=== PATIENT | male | born 1945 | race Caucasian/White ===

== ENCOUNTER 2016-09-07 11:12 | Inpatient (IN) | payer OTHER ==
--- NOTE | 2016-09-07 11:26 | PDOC ---
History of Present Illness - History of Present Illness Initial Comments: 09/07/16 11:37 The patient is a 70 year old male, with a significant past medical history of COPD, frequent pneumonia (last hospitalized over a year ago), and enlarged prostate, who presents to the emergency department with chills, generalized weakness, and pain upon urination today s/p having a procedure done to his prostate 6 days ago. He states he woke up this morning with chills, reports layering in clothes and laying back down, but reports waking up with his clothes soaked in sweat. He reports pain upon urination without feeling like he completely emptied his bladder. He states he stopped having hematuria on Tuesday. He also reports having a non-productive cough today. He also reports having to take a stool softener yesterday for constipation. 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 He denies chest pain, headache and dizziness. He denies fever, nausea, vomit, diarrhea. He denies frequency, urgency and hematuria. Allergies: NKDA Social history: denies toxic habits. (quit alcohol 40 years ago) PCP - Dr. Whit Morales Urologist - Dr. Harrington <Sol Chu - Last Filed: 09/07/16 12:42> <Loraine Mays - Last Filed: 09/14/16 09:58> - General Chief Complaint: Pain Stated Complaint: SOB (COPD) Time Seen by Provider: 09/07/16 11:25 Past History <Sol Chu - Last Filed: 09/07/16 12:42> - Past Medical History COPD: Yes GI Disorders: Yes (GERD) - Immunization History Immunization Up to Date: Yes - Psycho/Social/Smoking Cessation Hx Anxiety: No Suicidal Ideation: No Smoking History: Former smoker Have you smoked in the past 12 months: Yes If you are a former smoker, when did you quit?: 6 yrs Information on smoking cessation initiated: No Hx Alcohol Use: No Drug/Substance Use Hx: No Substance Use Type: None <Loraine Mays - Last Filed: 09/14/16 09:58> - Past Medical History Allergies/Adverse Reactions: Allergies Allergy/AdvReac Type Severity Reaction Status Date / Time No Known Allergies Allergy Verified 09/07/16 11:17 Home Medications: Ambulatory Orders Albuterol Sulfate Inhaler - [Ventolin HFA Inhaler -] 1 - 2 inh PO PRN 10/20/15 Montelukast Na [Singulair -] 10 mg PO HS 10/20/15 Tamsulosin HCl 0.4 mg PO BID 10/20/15 Tiotropium [place] [Spiriva] 1 inh IH DAILY 10/20/15 Bisacodyl [Dulcolax] 5 mg PO DAILY@1800 PRN 09/07/16 Dextrin [Fiber] 1 scoop PO DAILY@1800 09/07/16 Omeprazole 20 mg PO DAILY 09/07/16 Polyethylene Glycol 3350 [Miralax 119 gm Btl -] 17 gm PO DAILY@1800 09/07/16 Levofloxacin [Levaquin -] 500 mg PO DAILY #4 tablet 09/09/16 Review of Systems - Review of Systems Able to Perform ROS?: Yes Comments:: 09/07/16 11:38 GENERAL/CONSTITUTIONAL: (+) chills and generalized weakness. No fever HEAD, EYES, EARS, NOSE AND THROAT: No change in vision. No ear pain or discharge. No sore throat. CARDIOVASCULAR: No chest pain or shortness of breath. RESPIRATORY: (+) cough, No wheezing, or hemoptysis. GASTROINTESTINAL: No nausea, vomiting, diarrhea or constipation. GENITOURINARY: (+) dysuria, No frequency, or change in urination. MUSCULOSKELETAL: No joint or muscle swelling or pain. No neck or back pain. SKIN: No rash NEUROLOGIC: No headache, vertigo, loss of consciousness, or change in strength/ sensation. ENDOCRINE: No increased thirst. No abnormal weight change. HEMATOLOGIC/LYMPHATIC: No anemia, easy bleeding, or history of blood clots. ALLERGIC/IMMUNOLOGIC: No hives or skin allergy. <Sol Chu - Last Filed: 09/07/16 12:42> *Physical Exam - Vital Signs Last Vital Signs Temp Pulse Resp BP Pulse Ox 97.5 F L 100 H 18 141/87 92 L 09/07/16 11:13 09/07/16 11:13 09/07/16 11:13 09/07/16 11:13 09/07/16 11:13 <Sol Chu - Last Filed: 09/07/16 12:42> - Vital Signs Last Vital Signs Temp Pulse Resp BP Pulse Ox 97.5 F L 100 H 18 141/87 92 L 09/07/16 11:13 09/07/16 11:13 09/07/16 11:13 09/07/16 11:13 09/07/16 11:13 - Physical Exam Comments: GENERAL: Awake, alert, and fully oriented, in no acute distress. +Mild pallor. Appears ill but nontoxic. HEAD: No signs of trauma EYES: PERRLA, EOMI, sclera anicteric, conjunctiva clear ENT: Auricles normal inspection, hearing grossly normal, nares patent, oropharynx clear without exudates. Moist mucosa NECK: Normal ROM, supple, no lymphadenopathy, JVD, or masses LUNGS: Breath sounds equal, clear to auscultation bilaterally. No wheezes, and no crackles HEART: Regular rate and rhythm, normal S1 and S2, no murmurs, rubs or gallops ABDOMEN: Soft, nontender, normoactive bowel sounds. No guarding, no rebound. No masses EXTREMITIES: Normal range of motion, no edema. No clubbing or cyanosis. No cords, erythema, or tenderness NEUROLOGICAL: Cranial nerves II through XII grossly intact. Normal speech, normal gait SKIN: Warm, Dry, normal turgor, no rashes or lesions noted. <Loraine Mays - Last Filed: 09/14/16 09:58> ED Treatment Course - LABORATORY CBC & Chemistry Diagram: 09/07/16 12:07 09/07/16 12:07 - RADIOLOGY Radiograph Interpretation: 09/07/16 12:42 CXR was read by Dr. Burnette at 12:39 Impression: Increased lung markings in the left lower lung zone concerning for segmental left lower lobe pneumonia <Sol Chu - Last Filed: 09/07/16 12:42> - LABORATORY CBC & Chemistry Diagram: 09/09/16 06:30 09/09/16 06:30 <Loraine Mays - Last Filed: 09/14/16 09:58> *DC/Admit/Observation/Transfer - Attestations Scribe Attestion: 09/07/16 11:40 Documentation prepared by Sol Chu, acting as medical technicians for Loraine Mays MD, <Sol Chu - Last Filed: 09/07/16 12:42> - Discharge Dispostion Admit: Yes <Loraine Mays - Last Filed: 09/14/16 09:58> Diagnosis at time of Disposition: UTI (urinary tract infection) Qualifiers: Urinary tract infection type: site unspecified Hematuria presence: without hematuria Qualified Code(s): N39.0 - Urinary tract infection, site not specified Pneumonia Qualifiers: Pneumonia type: due to unspecified organism Laterality: left Lung location: lower lobe of lung Qualified Code(s): J18.1 - Lobar pneumonia, unspecified organism - Discharge Dispostion Disposition: HOME Condition at time of disposition: Stable - Prescriptions - Referrals
[2016-09-07] MEDS ORDERED: ALBUTEROL SO4 2.5/IPRATROPIUM 0.5 INH SOL 3 ML VIAL.NEB. NEB ONE ×2 (12:07→12:13)
[2016-09-07 12:17] LABS: URINE APPEARANCE CLEAR; URINE BILIRUBIN NEGATIVE (NEGATIVE); URINE COLOR LTYELLOW; URINE GLUCOSE (UA) NEGATIVE (NEGATIVE); URINE KETONE NEGATIVE (NEGATIVE); URINE NITRITE NEGATIVE (NEGATIVE); URINE UROBILINOGEN NEGATIVE E.U./dl (0.2-1.0)
[2016-09-07 12:28] LABS: URINE BLOOD 3+ (NEGATIVE); URINE LEUK ESTERASE 2+ (NEGATIVE); URINE PROTEIN 1+ (NEGATIVE)
[2016-09-07 12:37] LABS: URINE MUCUS RARE; URINE RBC 24 /hpf (0-3); URINE WBC 30 /hpf (3-5)
[2016-09-07 12:56] LABS: BASOPHIL 0.4 % (0-2.0); EOSINOPHIL 1.2 % (0-4.5); MCH 30.5 pg (25.7-33.7); MEAN CELL VOLUME 92.6 fl (80-96); MEAN PLT VOLUME 10.4 fl (7.5-11.1); NEUTROPHILS 85.5 % (42.8-82.8); PLATELET COUNT 182 K/MM3 (134-434); RDW 13.5 % (11.9-15.9); WHITE BLOOD COUNT 10.4 K/mm3 (4.0-10.0)
[2016-09-07 12:57] LABS: ALBUMIN 3.7 g/dl (3.4-5.0); ALK PHOS 100 U/L (45-117); ANION GAP 9 (8-16); BILIRUBIN,TOTAL 0.5 mg/dL (0.2-1.0); CALCIUM 8.8 mg/dL (8.5-10.1); CO2 25 mmol/L (21-32); COCKROFT - GAULT 74.84; GLUCOSE,RANDOM 92 mg/dL (74-106); SGOT/AST 18 U/L (15-37); SGPT/ALT 18 U/L (12-78); TOT PROT 6.9 g/dl (6.4-8.2)
[2016-09-07] MEDS ORDERED: LEVOFLOXACIN 750 MG IVPB 150 ML IVPB ONE ×2 (13:36→13:41)
[2016-09-07] MEDS ORDERED: SODIUM CHLORIDE 1,000 ML IV SCH ×2 (14:30→15:30)
--- NOTE | 2016-09-07 15:02 | HP ---
CHIEF COMPLAINT: chills and generalized weakness PCP: Kathi Morales Urologist: Len HISTORY OF PRESENT ILLNESS: This is a 70 yo man with h/o BPH s/p Greenlight procedure 09/01/16, COPD, frequent PNA, GERD who presents for care upon waking up this morning with chills, sweating and generalized weakness. He also reports burning at the urinary meatus at the conclusion of voiding. He denies urinary frequency and urgency. ER course was notable for: (1) left lower lobe PNA (2) Neutrophilia (3) Pyuria Recent Travel: Denies PAST MEDICAL HISTORY: COPD, frequent PNA, GERD, BPH s/p Greenlight procedure PAST SURGICAL HISTORY: Denies Social History: Smoking: Former smoker quit in 2008- 135 pack years Alcohol: Quit in 1976 Drugs: denies Family History: noncontributory Allergies No Known Allergies Allergy (Verified 09/07/16 11:17) HOME MEDICATIONS: Home Medications Medication Instructions Recorded Albuterol Sulfate Inhaler - 1 - 2 inh PO PRN 10/20/15 [Ventolin Hfa Inhaler -] Budesonide/Formeterol Fumarate 1 inh PO BID 10/20/15 [SYMBICORT 160/4.5mcg -] Montelukast Na [Singulair -] 10 mg PO HS 10/20/15 Tamsulosin HCl 0.4 mg PO DAILY 10/20/15 Tiotropium [place] [Spiriva] 1 inh PO DAILY 10/20/15 REVIEW OF SYSTEMS CONSTITUTIONAL: Absent: fever, malaise, loss of appetite, weight change Present: chills, diaphoresis, generalized weakness HEENT: Absent: rhinorrhea, nasal congestion, throat pain, throat swelling, difficulty swallowing, mouth swelling, ear pain, eye pain, visual changes CARDIOVASCULAR: Absent: chest pain, syncope, palpitations, irregular heart rate, lightheadedness , peripheral edema RESPIRATORY: Absent: cough, dyspnea with exertion, orthopnea, wheezing, stridor, hemoptysis Present: shortness of breath but denies change from baseline GASTROINTESTINAL: Absent: abdominal pain, abdominal distension, nausea, vomiting, diarrhea, constipation, melena, hematochezia GENITOURINARY: Absent: frequency, urgency, hesitancy, hematuria, genital pain Present: dysuria, right CVAT MUSCULOSKELETAL: Absent: myalgia, arthralgia, joint swelling, back pain, neck pain SKIN: Absent: rash, itching, pallor HEMATOLOGIC/IMMUNOLOGIC: Absent: easy bleeding, easy bruising, lymphadenopathy, frequent infections ENDOCRINE: Absent: unexplained weight gain, unexplained weight loss, heat intolerance, cold intolerance NEUROLOGIC: Absent: headache, focal weakness or paresthesias, dizziness, unsteady gait, seizure, mental status changes, bladder or bowel incontinence PSYCHIATRIC: Absent: anxiety, depression, suicidal or homicidal ideation, hallucinations. PHYSICAL EXAMINATION Vital Signs - 24 hr 09/07/16 11:13 Temperature 97.5 F L Pulse Rate 100 H Respiratory 18 Rate Blood Pressure 141/87 O2 Sat by Pulse 92 L Oximetry (%) GENERAL: Awake, alert, and fully oriented, in no acute distress. HEAD: Normal with no signs of trauma. EYES: Pupils equal, round and reactive to light, extraocular movements intact, sclera anicteric, conjunctiva clear. No lid lag. EARS, NOSE, THROAT: Ears normal, nares patent, oropharynx clear without exudates. Moist mucous membranes. NECK: Normal range of motion, supple without lymphadenopathy, JVD, or masses. LUNGS: Breath sounds equal, clear to auscultation bilaterally. No wheezes, and no crackles. No accessory muscle use. HEART: Regular rate and rhythm, normal S1 and S2 without murmur, rub or gallop. ABDOMEN: Soft, nontender, not distended, normoactive bowel sounds, no guarding, no rebound, no masses. No hepatomegaly or splenomegaly. MUSCULOSKELETAL: Normal range of motion at all joints. No bony deformities or tenderness. Right CVA tenderness. UPPER EXTREMITIES: 2+ pulses, warm, well-perfused. No cyanosis. No clubbing. No peripheral edema. LOWER EXTREMITIES: 2+ pulses, warm, well-perfused. No calf tenderness. No peripheral edema. NEUROLOGICAL: Cranial nerves II-XII intact. Normal speech. Normal gait. PSYCHIATRIC: Cooperative. Good eye contact. Appropriate mood and affect. SKIN: Warm, dry, normal turgor, no rashes or lesions noted, normal capillary refill. Laboratory Results - last 24 hr 09/07/16 09/07/16 09/07/16 11:55 12:07 12:07 WBC 10.4 H RBC 5.10 Hgb 15.6 Hct 47.2 MCV 92.6 MCHC 33.0 RDW 13.5 Plt Count 182 MPV 10.4 Neutrophils % 85.5 H Lymphocytes % 6.6 L Monocytes % 6.3 Eosinophils % 1.2 Basophils % 0.4 Sodium 140 Potassium 4.4 Chloride 106 Carbon Dioxide 25 Anion Gap 9 BUN 11 Creatinine 1.0 Creat Clearance w eGFR > 60 Random Glucose 92 Calcium 8.8 Total Bilirubin 0.5 AST 18 ALT 18 Alkaline Phosphatase 100 Total Protein 6.9 Albumin 3.7 Urine Color Ltyellow Urine Appearance Clear Urine pH 5.0 Ur Specific [place] 1.014 Urine Protein 1+ H Urine Glucose (UA) Negative Urine Ketones Negative Urine Blood 3+ H Urine Nitrite Negative Urine Bilirubin Negative Urine Urobilinogen Negative Ur Leukocyte Esterase 2+ H Urine RBC 24 Urine WBC 30 Urine Mucus Rare ASSESSMENT/PLAN: This is a 70 yo man with h/o BPH s/p Greenlight procedure 09/01/16, COPD, frequent PNA, GERD who presents for care upon waking up this morning with chills , sweating and generalized weakness. Pt found to have + LLL PNA, UTI s/p TURP 6 days ago 1. UTI: -Levaquin 750 mg x 7 days -strict I and O -monitor for retention and dysuria -IVF - consult 2. PNA LLL -on Levaquin for coverage -Chest PT/Incentive spirometer -monitor oxygen sat, supplemental as needed. 3. DVT/GI ppx 4. Admission med surg Problem List - Problem (1) Pneumonia Code(s): J18.9 - PNEUMONIA, UNSPECIFIED ORGANISM Qualifiers: Pneumonia type: due to unspecified organism Laterality: left Lung location: lower lobe of lung Qualified Code(s): J18.1 - Lobar pneumonia, unspecified organism (2) UTI (urinary tract infection) Code(s): N39.0 - URINARY TRACT INFECTION, SITE NOT SPECIFIED Qualifiers: Urinary tract infection type: site unspecified Hematuria presence: without hematuria Qualified Code(s): N39.0 - Urinary tract infection, site not specified Visit type - Emergency Visit Emergency Visit: Yes ED Registration Date: 09/07/16 Care time: The patient presented to the Emergency Department on the above date and was hospitalized for further evaluation of their emergent condition. - New Patient This patient is new to me today: Yes Date on this admission: 09/07/16 - Critical Care Critical Care patient: No
[2016-09-07] MEDS ORDERED: ALBUTEROL SO4 6.7 GM HFA INHALER IH SCH (15:15)
[2016-09-07] MEDS ORDERED: ACETAMINOPHEN 325 MG TABLET (FP) PO PRN (15:16)
[2016-09-07 17:29] VITALS: BMI 20.9
--- NOTE | 2016-09-07 18:42 | CON.GU ---
Consult Consult Specialty:: Urology Referred by:: Shelton Edwards Reason for Consultation:: UTI - History of Present Illness Chief Complaint: chills and weakness History of Present Illness: 70 yo m w hx BPH s/p GLL ablation of prostate 09/01 pres to ED c/o chills, sweats , weakness and dysuria, found to have UTI and PNA and cons req. - History Source History Provided By: Patient, Medical Record Limitations to Obtaining History: No Limitations - Past Medical History Pulmonary: Yes: COPD Renal/: Yes: BPH, UTI - Alcohol/Substance Use Hx Alcohol Use: No - Smoking History Smoking history: Former smoker Have you smoked in the past 12 months: No If you are a former smoker, when did you quit?: 2008 Home Medications - Allergies Allergies/Adverse Reactions: Allergies Allergy/AdvReac Type Severity Reaction Status Date / Time No Known Allergies Allergy Verified 09/07/16 11:17 - Home Medications Home Medications: Ambulatory Orders Albuterol Sulfate Inhaler - [Ventolin Hfa Inhaler -] 1 - 2 inh PO PRN 10/20/15 Montelukast Na [Singulair -] 10 mg PO HS 10/20/15 Tamsulosin HCl 0.4 mg PO BID 10/20/15 Tiotropium [place] [Spiriva] 1 inh IH DAILY 10/20/15 Bisacodyl [Dulcolax] 5 mg PO DAILY@1800 PRN 09/07/16 Dextrin [Fiber] 1 scoop PO DAILY@1800 09/07/16 Omeprazole 20 mg PO DAILY 09/07/16 Polyethylene Glycol 3350 [Miralax (For Daily Use) -] 17 gm PO DAILY@1800 Review of Systems - Review of Systems Genitourinary: reports: Burning, Dysuria Physical Exam- Vital Signs: Vital Signs Temperature 97.5 F L 09/07/16 17:21 Pulse Rate 85 09/07/16 17:21 Respiratory Rate 20 09/07/16 17:21 Blood Pressure 165/86 09/07/16 17:21 O2 Sat by Pulse Oximetry (%) 98 09/07/16 15:44 Gastrointestinal: Yes: Normal Bowel Sounds, Soft Renal/: Yes: WNL, CVA Tenderness - Right Testicles: Yes: WNL, Descended Assessment/Plan Imp: UTI, BPH s/p GLL ablation of prostate, PNA Rec: urine c+s, iv abxs, f/u w PMD after disch
[2016-09-07] MEDS: MONTELUKAST NA 10 MG TABLET PO SCH (22:56)
[2016-09-07] MEDS: BUDESONIDE/FORMETEROL FUMARATE 160/4.5 mcg INHALER IH SCH (22:56)
[2016-09-07] MEDS: ACLIDINIUM BROMIDE 400 MCG/INH AERO.POWD IH SCH (23:02)
[2016-09-08 07:52] LABS: MCH 30.8 pg (25.7-33.7); MCHC 33.4 g/dl (32.0-35.9); MEAN CELL VOLUME 92.3 fl (80-96); MEAN PLT VOLUME 10.5 fl (7.5-11.1); PLATELET COUNT 187 K/MM3 (134-434); RDW 13.2 % (11.9-15.9); WHITE BLOOD COUNT 7.2 K/mm3 (4.0-10.0)
--- NOTE | 2016-09-08 08:14 | EKG ---
Test Reason : Blood Pressure : / mmHG Vent. Rate : 089 BPM Atrial Rate : 089 BPM P-R Int : 212 ms QRS Dur : 078 ms QT Int : 344 ms P-R-T Axes : 106 029 032 degrees QTc Int : 418 ms SINUS RHYTHM WITH 1ST DEGREE A-V BLOCK WITH PREMATURE SUPRAVENTRICULAR COMPLEXES SEPTAL INFARCT , AGE UNDETERMINED ABNORMAL ECG NO PREVIOUS ECGS AVAILABLE Confirmed by LISE MATHEW MD ([id number]) on 09/08/2016 8:13:55 AM Referred By: Confirmed By:LISE MATHEW MD
[2016-09-08 08:57] LABS: ALBUMIN 3.2 g/dl (3.4-5.0); ALK PHOS 91 U/L (45-117); ANION GAP 13 (8-16); BILIRUBIN,TOTAL 0.8 mg/dL (0.2-1.0); CALCIUM 8.9 mg/dL (8.5-10.1); CO2 24 mmol/L (21-32); COCKROFT - GAULT 80.13; CREATININE 0.9 mg/dL (0.7-1.3); SGOT/AST 15 U/L (15-37); SGPT/ALT 17 U/L (12-78); TOT PROT 6.1 g/dl (6.4-8.2)
[2016-09-08 09:12] LABS: GLUCOSE,RANDOM 78 mg/dL (74-106)
[2016-09-08] MEDS ORDERED: PT OWN MED DRAWER 7, Y5N ONE (10:18)
[2016-09-08] MEDS: TAMSULOSIN HCL 0.4 MG CAP.ER.24H (FP) PO SCH (10:19)
[2016-09-08] MEDS: ACLIDINIUM BROMIDE 400 MCG/INH AERO.POWD IH SCH ×2 (10:20→21:23)
[2016-09-08] MEDS: BUDESONIDE/FORMETEROL FUMARATE 160/4.5 mcg INHALER IH SCH ×2 (10:20→21:23)
[2016-09-08] MEDS: LEVOFLOXACIN 250 MG TABLET (FP) PO SCH (10:20)
--- NOTE | 2016-09-08 17:56 | PN ---
Teaching Attending Note Name of Resident: Stephani Woodward ATTENDING PHYSICIAN STATEMENT I saw and evaluated the patient. I reviewed the resident's note and discussed the case with the resident. I agree with the resident's findings and plan as documented. SUBJECTIVE: No complaints. OBJECTIVE: Vital Signs Period Temp Pulse Resp BP Sys/Ricardo Pulse Ox Last 24 Hr 97.1 F-98.3 F 70-87 20-20 111-134/69-70 91-95 HEART: S1S2, RRR LUNGS: Clear ABDOMEN: Soft, non-tender, non-distended, normal BS EXTREMITIES: No edema ASSESSMENT AND PLAN: This is a 70-year-old man with a history of BPH, Greenlight laser of prostate , COPD, GERD who presented to the ER with chills, sweats and generalized weakness. 1. Pneumonia, UTI - Improving - Continue Levaquin 2. BPH, s/p greenlight laser ablation of prostate 09/01 - Continue Flomax 3. COPD - Stable - Continue Symbixort, Jose Alfredorseveriano, Sukumarulair
--- NOTE | 2016-09-08 18:42 | PN ---
Physical Exam: SUBJECTIVE: Patient seen and examined, no new complains, afebrile. Denies cough , diaphoresis, chest pain, sob, dysuria, hematuria. OBJECTIVE: Vital Signs Period Temp Pulse Resp BP Sys/Ricardo Pulse Ox Last 24 Hr 97.1 F-98.3 F 70-87 20-20 111-134/69-70 91-95 GENERAL: The patient is awake, alert, and fully oriented, in no acute distress. HEAD: Normal with no signs of trauma. LUNGS: Breath sounds equal, bilateral bibasilar crackles HEART: Regular rate and rhythm, very distant heart sounds;hard to auscultate ABDOMEN: Soft, nontender, nondistended, normoactive bowel sounds, no guarding, no rebound, no hepatosplenomegaly, no masses. EXTREMITIES: 2+ pulses, warm, well-perfused, no edema. NEUROLOGICAL: Cranial nerves II through XII grossly intact. Normal speech, gait not observed. PSYCH: Normal mood, normal affect. SKIN: Warm, dry, normal turgor, no rashes or lesions noted Laboratory Results - last 24 hr 09/08/16 09/08/16 09/08/16 06:15 06:15 06:15 WBC 7.2 D RBC 4.92 Hgb 15.1 Hct 45.4 MCV 92.3 MCHC 33.4 RDW 13.2 Plt Count 187 MPV 10.5 PTT (Actin FS) 33.7 Sodium 141 Potassium 4.1 Chloride 104 Carbon Dioxide 24 Anion Gap 13 BUN 13 Creatinine 0.9 Creat Clearance w eGFR > 60 Random Glucose 78 Calcium 8.9 Total Bilirubin 0.8 D AST 15 ALT 17 Alkaline Phosphatase 91 Total Protein 6.1 L Albumin 3.2 L Active Medications Generic Name Dose Route Start Last Admin Trade Name Freq PRN Reason Stop Dose Admin Acetaminophen 650 mg 09/07/16 15:16 Tylenol - PO Q4H PRN FEVER OR PAIN Aclidinium [place] 1 puff 09/07/16 22:00 09/08/16 10:20 Tudorza - IH 1 puff BID YARIEL Administration Albuterol Sulfate 1 - 2 puff 09/07/16 15:15 Ventolin Hfa Inhaler - IH PRN YARIEL Budesonide/Formoterol Fumarate 1 puff 09/07/16 22:00 09/08/16 10:20 Symbicort 160/4.5mcg - IH 1 puff BID YARIEL Administration Sodium Chloride 1,000 mls @ 75 mls/hr 09/07/16 15:30 09/07/16 20:23 Normal Saline - IV 75 mls/hr ASDIR YARIEL Administration Levofloxacin 750 mg 09/08/16 10:00 09/08/16 10:20 Levaquin - PO 09/14/16 11:00 750 mg DAILY YARIEL Administration Montelukast Sodium 10 mg 09/07/16 22:00 09/07/16 22:56 Singulair - PO 10 mg HS YARIEL Administration Tamsulosin HCl 0.4 mg 09/08/16 10:00 09/08/16 10:19 Flomax - PO 0.4 mg DAILY YARIEL Administration ASSESSMENT/PLAN: 70 yea old male with PMHx BPH s/p TURP procedure on 09/01/16; recurrent PNA; COPD , GERD; presents wtih night sweats and fever, admitted for left lower lobe pneumonia and UTI. # left lower lobe pneumonia: -IV levaquin 750mg qd -await blood cultures -keep o2 sat >90% #UTI -on antibiotics -urine culture pending -seen by uroloogy; no intervention at this time #COPD: singulair 10mg po hs -symbicort 1puff qd -turdoza 1 puff bid #BPH: flomax FEN: Fluids:po Electrolytes: DIet: regular Visit type - Emergency Visit Emergency Visit: Yes ED Registration Date: 09/07/16 Care time: The patient presented to the Emergency Department on the above date and was hospitalized for further evaluation of their emergent condition. - New Patient This patient is new to me today: Yes Date on this admission: 09/08/16 - Critical Care Critical Care patient: No
[2016-09-08] MEDS: MONTELUKAST NA 10 MG TABLET PO SCH (21:23)
[2016-09-09 07:56] LABS: BASOPHIL 0.7 % (0-2.0); EOSINOPHIL 3.2 % (0-4.5); MCHC 33.3 g/dl (32.0-35.9); MEAN CELL VOLUME 93.2 fl (80-96); NEUTROPHILS 78.6 % (42.8-82.8); PLATELET COUNT 182 K/MM3 (134-434); RDW 13.1 % (11.9-15.9)
[2016-09-09 08:31] LABS: CALCIUM 9.1 mg/dL (8.5-10.1); COCKROFT - GAULT 60.1; CREATININE 1.2 mg/dL (0.7-1.3)
[2016-09-09] MEDS ORDERED: PT OWN MED DRAWER 7, Y5N ONE (09:23)
[2016-09-09] MEDS: BUDESONIDE/FORMETEROL FUMARATE 160/4.5 mcg INHALER IH SCH (09:40)
[2016-09-09] MEDS: LEVOFLOXACIN 250 MG TABLET (FP) PO SCH (09:40)
[2016-09-09] MEDS: TAMSULOSIN HCL 0.4 MG CAP.ER.24H (FP) PO SCH (09:40)
[2016-09-09] MEDS: ACLIDINIUM BROMIDE 400 MCG/INH AERO.POWD IH SCH (09:41)
[2016-09-09 10:13] VITALS: BP 134/76; PULSE 86; TEMP 97.7
[2016-09-09] MEDS ORDERED: POLYETHYLENE GLYCOL 3350 119 GM BTL PO SCH (11:15)
--- NOTE | 2016-09-09 16:28 | DS ---
Physical Exam: SUBJECTIVE: Patient seen and examined, feeling better, denies chest pain, sob, dysuria, hematuria. OBJECTIVE: Vital Signs Period Temp Pulse Resp BP Sys/Ricardo Pulse Ox Last 24 Hr 97.1 F-97.7 F 70-86 20-20 118-134/66-76 93 PHYSICAL EXAM GENERAL: The patient is awake, alert, and fully oriented, in no acute distress. HEAD: Normal with no signs of trauma. EYES: PERRL, extraocular movements intact, sclera anicteric, conjunctiva clear. ENT: Ears normal, nares patent, oropharynx clear without exudates, moist mucous membranes. NECK: Trachea midline, full range of motion, supple. LUNGS: decreased Breath sounds at bases , clear to auscultation bilaterally, no wheezes, no crackles, no accessory muscle use. HEART: Regular rate and rhythm, S1, S2 without murmur, rub or gallop. ABDOMEN: Soft, nontender, nondistended, normoactive bowel sounds, no guarding, no rebound, no hepatosplenomegaly, no masses. EXTREMITIES: 2+ pulses, warm, well-perfused, no edema. NEUROLOGICAL: Cranial nerves II through XII grossly intact. Normal speech, gait not observed. PSYCH: Normal mood, normal affect. SKIN: Warm, dry, normal turgor, no rashes or lesions noted. LABS Laboratory Results - last 24 hr 09/09/16 09/09/16 06:30 06:30 WBC 9.0 RBC 4.97 Hgb 15.4 Hct 46.3 MCV 93.2 MCHC 33.3 RDW 13.1 Plt Count 182 MPV 10.0 Neutrophils % 78.6 Lymphocytes % 7.9 L Monocytes % 9.6 Eosinophils % 3.2 D Basophils % 0.7 Sodium 141 Potassium 4.4 Chloride 105 Carbon Dioxide 24 Anion Gap 12 BUN 19 H D Creatinine 1.2 D Random Glucose 93 Calcium 9.1 HOSPITAL COURSE: Date of Admission:09/07/16 Date of Discharge: 09/09/16 70 yea old male with PMHx BPH s/p TURP procedure on 09/01/16; history of recurrent pneumonia, COPD, GERD who presented with night sweats and fever, dysuria admitted for left lower lobe pneumonia. There was question of urinary tract infection, this was ruled out due to recent procedure, patient was likey to have had white and red blood cell sin urine. He only had episodes of dysuria after catheter was removed s/p greenlight ablation. This was quickly resolved. # Left lower lobe pneumonia: -Levaquin 750mg 3 days in hospital ; sent home to complete seven days -blood cultures negative -keep o2 sat >90% #Urine analysis with RBCs, WBCs secondary to recent urology procedure; -on antibiotics -urine culture pending -seen by uroloogy; no intervention at this time; will follow up in office #COPD: -singulair 10mg po hs -symbicort 1puff qd -turdoza 1 puff bid #BPH: flomax Minutes to complete discharge: 35 Discharge Summary Reason For Visit: UTI,PNA Condition: Stable - Instructions Diet, Activity, Other Instructions: Mr. Deng, you have been treated for a urinary tract infection and a pneumonia. Please continue to take your antibiotic as directed. Please follow up with your urologist and primary care physician with on one week. If you experience any worsening of symptoms including chest pain , shortness of breath, increased burning with urination, please return to the emergency room. Referrals: Yolis Sprague MD [Primary Care Provider] - Clay Dumont [Non Staff, Medical] - Disposition: HOME - Home Medications Comprehensive Discharge Medication List: Ambulatory Orders Albuterol Sulfate Inhaler - [Ventolin HFA Inhaler -] 1 - 2 inh PO PRN 10/20/15 Montelukast Na [Singulair -] 10 mg PO HS 10/20/15 Tamsulosin HCl 0.4 mg PO BID 10/20/15 Tiotropium [place] [Spiriva] 1 inh IH DAILY 10/20/15 Bisacodyl [Dulcolax] 5 mg PO DAILY@1800 PRN 09/07/16 Dextrin [Fiber] 1 scoop PO DAILY@1800 09/07/16 Omeprazole 20 mg PO DAILY 09/07/16 Polyethylene Glycol 3350 [Miralax 119 gm Btl -] 17 gm PO DAILY@1800 09/07/16 Levofloxacin [Levaquin -] 500 mg PO DAILY #4 tablet 09/09/16 This patient is new to me today: No Emergency Visit: Yes ED Registration Date: 09/07/16 Care time: The patient presented to the Emergency Department on the above date and was hospitalized for further evaluation of their emergent condition. Critical Care patient: No - Discharge Referral Referred to [facility] Med P.C.: No
--- NOTE | 2016-09-09 17:25 | PN ---
Teaching Attending Note Name of Resident: Stephani Woodward ATTENDING PHYSICIAN STATEMENT I saw and evaluated the patient. I reviewed the resident's note and discussed the case with the resident. I agree with the resident's findings and plan as documented. SUBJECTIVE: No complaints. OBJECTIVE: Vital Signs Period Temp Pulse Resp BP Sys/Ricardo Pulse Ox Last 24 Hr 97.6 F-97.7 F 83-86 20-20 118-134/66-76 93 HEART: S1S2, RRR LUNGS: Clear ABDOMEN: Soft, non-tender, non-distended, normal BS EXTREMITIES: No edema ASSESSMENT AND PLAN: This is a 70-year-old man with a history of BPH, Greenlight laser of prostate , COPD, GERD who presented to the ER with chills, sweats and generalized weakness. 1. Pneumonia, possible UTI - Blood cultures negaive after 48 hrs - Urine culture < 10,000 colonies - Continue Levaquin 2. BPH, s/p greenlight laser ablation of prostate 09/01 - Continue Flomax 3. COPD - Stable - Continue Symbixort, Tudorza, Singulair 4. Disposition - Discharge home on PO Levaquin
== END 2016-09-09 14:04 | disposition home or self-care (01) | DRG 194 ==
LOC: JER 11:12 → JERBED 14:26 → J8W 16:15
PROVIDERS: ADMIT Internal Medicine; ATTEND Internal Medicine
DX: J18.9 Pneumonia, unspecified organism (principal); N39.0 Urinary tract infection, site not specified; J44.9 Chronic obstructive pulmonary disease, unspecified; N40.0 Benign prostatic hyperplasia without lower urinary tract symptoms; K21.9 Gastro-esophageal reflux disease without esophagitis
CPT/HCPCS: 36415; 71010-TC; 80048; 80053; 81003; 81015; 85025; 85027; 85730; 87040; 87086; 87899; 93005; 93010; 94010; 99283-25

== ENCOUNTER 2017-01-31 10:11 | Emergency (ER) | payer OTHER ==
[2017-01-31 10:27] VITALS: BMI 21.7
--- NOTE | 2017-01-31 10:47 | PDOC ---
History of Present Illness - General Chief Complaint: Shortness of Breath Stated Complaint: FEVER, CHILLS Time Seen by Provider: 01/31/17 10:47 - History of Present Illness Initial Comments: This is a 70 yo man with h/o BPH s/p Greenlight procedure 09/01/16, COPD, frequent PNA, and GERD presenting with SOB, productive cough, and warmth for the past few days. Patient states that he had an upper respiratory infection that felt like a cold which resolved mid last week and he was asymptomatic for a few days then began to have fevers, productive cough, SOB, and general lethargy on Tuesday. He states that these symptoms feel like his previous episodes of PNA for which he was admitted back in September for a one day IV antibiotic stay. He has done outpatient oral antibiotics in the past with good success. He was not able to measure his temperature at home. He complains of some occasional lower right posterior rib pain after some coughing without radiation or other concerning signs. He is on oxygen at night 2L NC for the past month. Denies nausea, vomiting, diarrhea, dysuria, or frequency but does admit to decreased appetite over the last few days. 01/31/17 10:48 01/31/17 11:49 Past History - Past Medical History Allergies/Adverse Reactions: Allergies Allergy/AdvReac Type Severity Reaction Status Date / Time No Known Allergies Allergy Verified 01/31/17 10:23 Home Medications: Ambulatory Orders Albuterol Sulfate Inhaler - [Ventolin HFA Inhaler -] 1 - 2 inh PO PRN 10/20/15 Montelukast Na [Singulair -] 10 mg PO HS 10/20/15 Tamsulosin HCl 0.4 mg PO BID 10/20/15 Tiotropium [place] [Spiriva] 1 inh IH DAILY 10/20/15 Bisacodyl [Dulcolax] 5 mg PO DAILY@1800 PRN 09/07/16 Dextrin [Fiber] 1 scoop PO DAILY@1800 09/07/16 Omeprazole 20 mg PO DAILY 09/07/16 Polyethylene Glycol 3350 [Miralax 119 gm Btl -] 17 gm PO DAILY@1800 09/07/16 Aspirin [ASA -] 325 mg PO DAILY 01/31/17 Budesonide/Formeterol Fumarate [SYMBICORT 160/4.5mcg -] 1 inh PO DAILY 01/31/17 Levofloxacin [Levaquin -] 500 mg PO DAILY #14 tablet 01/31/17 Pantoprazole Sodium 40 mg PO DAILY 01/31/17 Simvastatin 10 mg PO DAILY 01/31/17 COPD: Yes GI Disorders: Yes (GERD) Disorders: (ENLARGED PROSTATE) Thyroid Disease: (HYPOTHYROID A CHILD) Other medical history: o2 dependant at night - Surgical History Appendectomy: Yes Orthopedic Surgery: (JAW SURGERY) - Immunization History Immunization Up to Date: Yes - Suicide/Smoking/Psychosocial Hx Smoking History: Former smoker Have you smoked in the past 12 months: Yes If you are a former smoker, when did you quit?: 6 yrs Information on smoking cessation initiated: No Hx Alcohol Use: No Drug/Substance Use Hx: No Substance Use Type: None Hx Substance Use Treatment: No Review of Systems - Review of Systems Constitutional: Yes: Chills, Fever, Malaise, Weakness HEENTM: No: Blurred Vision, Recent change in vision Respiratory: Yes: Cough, Shortness of Breath, Productive cough. No: Wheezing Cardiac (ROS): No: Chest Pain, Palpitations, Syncope, Chest Tightness ABD/GI: Yes: Poor Appetite. No: Nausea, Vomiting : No: Dysuria, Discharge, Frequency Neurological: No: Headache, Numbness *Physical Exam - Vital Signs Last Vital Signs Temp Pulse Resp BP Pulse Ox 97.4 F L 59 L 18 180/86 94 L 01/31/17 10:23 01/31/17 10:23 01/31/17 10:23 01/31/17 10:23 01/31/17 10:23 - Physical Exam General Appearance: Yes: Nourished, Appropriately Dressed. No: Apparent Distress HEENT: positive: EOMI, GISEL, Normal Voice, Pharyngeal Erythema, Other (Dry mucous membranes) Neck: positive: Trachea midline, Normal Thyroid, Supple, Other (No lymphadenopathy). negative: Tender, Rigid Respiratory/Chest: positive: Lungs Clear, Normal Breath Sounds. negative: Chest Tender, Respiratory Distress, Accessory Muscle Use Cardiovascular: positive: Regular Rhythm, Regular Rate Gastrointestinal/Abdominal: positive: Normal Bowel Sounds, Flat, Soft. negative : Tender Musculoskeletal: positive: Normal Inspection Extremity: positive: Normal Inspection, Normal Range of Motion. negative: Tender Integumentary: positive: Normal Color, Dry, Warm Neurologic: positive: Fully Oriented, Alert, Normal Mood/Affect, Motor Strength 09/17 ED Treatment Course - LABORATORY CBC & Chemistry Diagram: 01/31/17 11:42 01/31/17 11:42 Medical Decision Making - Medical Decision Making 71 year old male with PMH of recurrent PNA presenting with respiratory issues, fevers, and cough. This is most concerning for post-viral pneumonia or bacterial super-infection on top of the previous viral illness. He does not perc out but he does not have history of coagulopathy.`He also scores a zero on wells criteria. Will get CBC, CMP, UA, and CXR then give 500 NS. 01/31/17 11:45 CXR appears clear and WBC WNL but with slight left shift. PSI score is 59 ( assuming that blood PH is WNL) so patient is appropriate for outpatient treatment. Will re-evaluate and send home with levaquin course (500 qd x 14 days ) with return precautions. 01/31/17 12:20 Patient feeling better so will DC home. 01/31/17 14:28 *DC/Admit/Observation/Transfer Diagnosis at time of Disposition: Pneumonia - Discharge Dispostion Disposition: HOME Condition at time of disposition: Improved Admit: No - Prescriptions Prescriptions: Levofloxacin [Levaquin -] 500 mg PO DAILY #14 tablet - Patient Instructions Printed Discharge Instructions: DI for Pneumonia -- Adult
--- NOTE | 2017-01-31 10:55 | PDOC ---
Attending Attestation - Resident Resident Name: Cecy Bunch - ED Attending Attestation I have performed the following: I have examined & evaluated the patient, The case was reviewed & discussed with the resident, I agree w/resident's findings & plan, Exceptions are as noted - HPI HPI: 01/31/17 10:50 Dyspnea/SHortness of Breath - Physicial Exam PE: 01/31/17 10:51 RR 18 and Pulse Ox 94% No Distress - Medical Decision Making 01/31/17 10:[address] Cecy Bunch Assessment and Plan
[2017-01-31] MEDS ORDERED: SODIUM CHLORIDE 500 ML IV STA (11:51)
[2017-01-31 12:04] LABS: BASOPHIL 0.7 % (0-2.0); EOSINOPHIL 1.7 % (0-4.5); MCH 30.8 pg (25.7-33.7); MCHC 33.4 g/dl (32.0-35.9); MEAN CELL VOLUME 92.4 fl (80-96); MEAN PLT VOLUME 9.5 fl (7.5-11.1); NEUTROPHILS 87.7 % (42.8-82.8); PLATELET COUNT 216 K/MM3 (134-434); RDW 13.2 % (11.9-15.9); WHITE BLOOD COUNT 9.2 K/mm3 (4.0-10.0)
[2017-01-31 12:24] LABS: ALBUMIN 3.5 g/dl (3.4-5.0); ALK PHOS 89 U/L (45-117); ANION GAP 4 (8-16); BILIRUBIN,TOTAL 0.3 mg/dL (0.2-1.0); CALCIUM 8.7 mg/dL (8.5-10.1); CO2 29 mmol/L (21-32); GLUCOSE,RANDOM 94 mg/dL (74-106); MAGNESIUM 2.2 mg/dL (1.8-2.4); PHOSPHOROUS 1.9 mg/dL (2.5-4.9); SGOT/AST 21 U/L (15-37); SGPT/ALT 25 U/L (12-78); TOT PROT 6.5 g/dl (6.4-8.2)
[2017-01-31] MEDS ORDERED: LEVOFLOXACIN 500 MG IVPB 100 ML IVPB ONE ×2 (13:22→13:49)
[2017-01-31 14:21] LABS: URINE APPEARANCE CLEAR; URINE BILIRUBIN NEGATIVE (NEGATIVE); URINE BLOOD NEGATIVE (NEGATIVE); URINE COLOR STRAW; URINE GLUCOSE (UA) NEGATIVE (NEGATIVE); URINE KETONE NEGATIVE (NEGATIVE); URINE LEUK ESTERASE NEGATIVE (NEGATIVE); URINE NITRITE NEGATIVE (NEGATIVE); URINE PROTEIN NEGATIVE (NEGATIVE); URINE UROBILINOGEN NEGATIVE mg/dL (0.2-1.0)
[2017-01-31 14:52] VITALS: BP 114/68; PULSE 64; TEMP 98.2
--- NOTE | 2017-01-31 16:35 | EKG ---
Test Reason : Blood Pressure : / mmHG Vent. Rate : 057 BPM Atrial Rate : 057 BPM P-R Int : 172 ms QRS Dur : 086 ms QT Int : 394 ms P-R-T Axes : 059 028 045 degrees QTc Int : 383 ms SINUS BRADYCARDIA WITH OCCASIONAL PREMATURE VENTRICULAR COMPLEXES OTHERWISE NORMAL ECG WHEN COMPARED WITH ECG OF 07-SEP-2016 14:55, PREMATURE VENTRICULAR COMPLEXES ARE NOW PRESENT [place] INTERVAL HAS DECREASED VENT. RATE HAS DECREASED BY 32 BPM Confirmed by LISE MATHEW MD ([id number]) on 01/31/2017 4:34:55 PM Referred By: Confirmed By:LISE MATHEW MD
== END 2017-01-31 14:40 | disposition home or self-care (01) ==
LOC: JER 10:11
PROC: 3E0337Z Introduction of Electrolytic and Water Balance Substance into Peripheral Vein, Percutaneous Approach (ICD-10-PCS; principal; 2017-01-31)
PROC: 3E03329 Introduction of Other Anti-infective into Peripheral Vein, Percutaneous Approach (ICD-10-PCS; 2017-01-31)
DX: J18.9 Pneumonia, unspecified organism (principal); K21.9 Gastro-esophageal reflux disease without esophagitis; N40.0 Benign prostatic hyperplasia without lower urinary tract symptoms
CPT/HCPCS: 36415; 71020-TC; 80053; 81003; 83735; 84100; 85025; 87086; 93005; 93010; 96361; 96365; 99284-25

== ENCOUNTER 2017-02-22 11:09 | Emergency (ER) | payer OTHER ==
[2017-02-22 11:19] VITALS: BP 146/89; PULSE 62; TEMP 97.7; BMI 21.7
[2017-02-22] MEDS ORDERED: KETOROLAC TROMETHAMINE 60 MG/2 ML VIAL IM ONE (12:18)
[2017-02-22] MEDS ORDERED: KETOROLAC TROMETHAMINE 60 MG/2 ML VIAL ONE (12:21)
--- NOTE | 2017-02-22 12:23 | PDOC ---
History of Present Illness - General Chief Complaint: Pain Stated Complaint: Left Shoulder Pain Time Seen by Provider: 02/22/17 11:48 History Source: Patient Exam Limitations: No Limitations - History of Present Illness Initial Comments: 02/22/17 12:19 71 yr male with c/o left upper back to neck and shoulder pain for 2 days woke up yesterday with pain, worse when sleeping. Pt denies trauma, states he may have an old mattress that is causing the pain. Pt has no other complaints. Past History - Past Medical History Allergies/Adverse Reactions: Allergies Allergy/AdvReac Type Severity Reaction Status Date / Time acetaminophen [From Tylenol] AdvReac Verified 02/22/17 11:15 Home Medications: Ambulatory Orders Albuterol Sulfate Inhaler - [Ventolin HFA Inhaler -] 1 - 2 inh PO PRN 10/20/15 Montelukast Na [Singulair -] 10 mg PO HS 10/20/15 Tamsulosin HCl 0.4 mg PO BID 10/20/15 Tiotropium [place] [Spiriva] 1 inh IH DAILY 10/20/15 Bisacodyl [Dulcolax] 5 mg PO DAILY@1800 PRN 09/07/16 Dextrin [Fiber] 1 scoop PO DAILY@1800 09/07/16 Omeprazole 20 mg PO DAILY 09/07/16 Polyethylene Glycol 3350 [Miralax 119 gm Btl -] 17 gm PO DAILY@1800 09/07/16 Aspirin [ASA -] 325 mg PO DAILY 01/31/17 Budesonide/Formeterol Fumarate [SYMBICORT 160/4.5mcg -] 1 inh PO DAILY 01/31/17 Levofloxacin [Levaquin -] 500 mg PO DAILY #14 tablet 01/31/17 Pantoprazole Sodium 40 mg PO DAILY 01/31/17 Simvastatin 10 mg PO DAILY 01/31/17 Cyclobenzaprine HCl [Flexeril 10 mg] 5 mg PO TID PRN #12 tablet 02/22/17 Naproxen [Naprosyn -] 500 mg PO BID PRN #14 tablet 02/22/17 COPD: Yes GI Disorders: Yes (GERD) Disorders: (ENLARGED PROSTATE) Thyroid Disease: (HYPOTHYROID A CHILD) Other medical history: left shoulder dislocation - Surgical History Appendectomy: Yes Orthopedic Surgery: (JAW SURGERY) - Immunization History Immunization Up to Date: Yes - Suicide/Smoking/Psychosocial Hx Smoking History: Former smoker Have you smoked in the past 12 months: No If you are a former smoker, when did you quit?: 2007 Information on smoking cessation initiated: No Hx Alcohol Use: No Drug/Substance Use Hx: No Substance Use Type: None Hx Substance Use Treatment: No *Physical Exam - Vital Signs Last Vital Signs Temp Pulse Resp BP Pulse Ox 97.7 F 62 18 146/89 97 02/22/17 11:12 02/22/17 11:12 02/22/17 11:12 02/22/17 11:12 02/22/17 11:12 - Physical Exam General Appearance: Yes: Nourished, Appropriately Dressed HEENT: positive: EOMI, GISEL Neck: positive: Supple, Tender lateral (left lateral ttp muscle spasm trapezius muscle ). negative: Tender Respiratory/Chest: positive: Lungs Clear, Normal Breath Sounds Cardiovascular: positive: Regular Rhythm, Regular Rate Gastrointestinal/Abdominal: positive: Normal Bowel Sounds, Soft Musculoskeletal: positive: Normal Inspection Extremity: positive: Normal Capillary Refill, Normal Inspection, Normal Range of Motion Integumentary: positive: Normal Color, Dry, Warm Neurologic: positive: Fully Oriented, Alert, Normal Mood/Affect, Normal Response , Motor Strength 5/5 ED Treatment Course - RADIOLOGY Radiology Studies Ordered: Category Date Time Status SHOULDER-LEFT [RAD] Stat Radiology 02/22/17 11:52 Taken Medical Decision Making - Medical Decision Making 02/22/17 13:10 cc: left upper back to neck pain worse with sleeping,. lying down in bed makes pain worse, described as a stabbing sensation denies numbness or tingling has FROM of the left arm, nv intact, pain reproduced to touch left upper neck and back will give toradol now dc with flexeril and naprosyn follow up with the orthopedist *DC/Admit/Observation/Transfer Diagnosis at time of Disposition: Muscle spasm - Discharge Dispostion Disposition: HOME Condition at time of disposition: Good - Prescriptions Prescriptions: Cyclobenzaprine HCl [Flexeril 10 mg] 5 mg PO TID PRN #12 tablet PRN Reason: Muscle Spasms Naproxen [Naprosyn -] 500 mg PO BID PRN #14 tablet PRN Reason: Pain - Referrals Referrals: Zac Kaur MD [Staff Physician] - - Patient Instructions Additional Instructions: apply warm compresses to area of pain every 3hrs for 20 minutes use the medication as prescribed follow with the orthopedist Dr. Kaur if symptoms worsen or persist
== END 2017-02-22 12:28 | disposition home or self-care (01) ==
LOC: JERFT 11:09
PROC: 3E0233Z Introduction of Anti-inflammatory into Muscle, Percutaneous Approach (ICD-10-PCS; principal; 2017-02-22)
DX: M62.830 Muscle spasm of back (principal); J44.9 Chronic obstructive pulmonary disease, unspecified; K21.9 Gastro-esophageal reflux disease without esophagitis; N40.0 Benign prostatic hyperplasia without lower urinary tract symptoms; Z79.82 Long term (current) use of aspirin; Z88.6 Allergy status to analgesic agent; Z86.39 Personal history of other endocrine, nutritional and metabolic disease; Z87.891 Personal history of nicotine dependence
CPT/HCPCS: 73030-TC-LT; 99281-25

== ENCOUNTER 2018-07-20 11:19 | Emergency (ER) | payer OTHER ==
[2018-07-20 11:29] VITALS: BP 168/92; PULSE 90; BMI 22.4
--- NOTE | 2018-07-20 11:57 | PDOC ---
History of Present Illness - General Chief Complaint: Injury Stated Complaint: RT FOOT INJURY Time Seen by Provider: 07/20/18 11:51 History Source: Patient - History of Present Illness Initial Comments: 07/20/18 12:27 9p-year-old male complaining of right foot pain and swelling to the heel for the last 3 days after a slip in the tub. Patient denies any head injury, dizziness or LOC. Past medical history of COPD, BPH, alcoholism. Past History - Past Medical History Allergies/Adverse Reactions: Allergies Allergy/AdvReac Type Severity Reaction Status Date / Time acetaminophen [From Tylenol] AdvReac Verified 07/20/18 11:22 Home Medications: Ambulatory Orders Albuterol Sulfate Inhaler - [Ventolin HFA Inhaler -] 1 - 2 inh PO PRN 10/20/15 Montelukast Na [Singulair -] 10 mg PO HS 10/20/15 Tamsulosin HCl 0.4 mg PO BID 10/20/15 Tiotropium [place] [Spiriva] 1 inh IH DAILY 10/20/15 Bisacodyl [Dulcolax] 5 mg PO DAILY@1800 PRN 09/07/16 Dextrin [Fiber] 1 scoop PO DAILY@1800 09/07/16 Omeprazole 20 mg PO DAILY 09/07/16 Polyethylene Glycol 3350 [Miralax 119 gm Btl -] 17 gm PO DAILY@1800 09/07/16 Aspirin [ASA -] 325 mg PO DAILY 01/31/17 Budesonide/Formeterol Fumarate [SYMBICORT 160/4.5mcg -] 1 inh PO DAILY 01/31/17 Pantoprazole Sodium 40 mg PO DAILY 01/31/17 Simvastatin 10 mg PO DAILY 01/31/17 levoFLOXacin [Levaquin -] 500 mg PO DAILY #14 tablet 01/31/17 Cyclobenzaprine HCl [Flexeril 10 mg] 5 mg PO TID PRN #12 tablet 02/22/17 Naproxen [Naprosyn -] 500 mg PO BID PRN #14 tablet 02/22/17 COPD: Yes GI Disorders: Yes (GERD) Disorders: (ENLARGED PROSTATE) Thyroid Disease: (HYPOTHYROID A CHILD) - Surgical History Appendectomy: Yes Orthopedic Surgery: (JAW SURGERY) - Immunization History Immunization Up to Date: Yes - Suicide/Smoking/Psychosocial Hx Smoking History: Former smoker Have you smoked in the past 12 months: No If you are a former smoker, when did you quit?: 2007 Information on smoking cessation initiated: No Hx Alcohol Use: No Drug/Substance Use Hx: No Substance Use Type: None Hx Substance Use Treatment: No Review of Systems - Review of Systems Able to Perform ROS?: Yes Is the patient limited Spanish proficient: No Musculoskeletal: Yes: Other (foot pain) *Physical Exam - Vital Signs Last Vital Signs Temp Pulse Resp BP Pulse Ox 90 18 168/92 96 07/20/18 11:23 07/20/18 11:23 07/20/18 11:23 07/20/18 11:23 - Physical Exam General Appearance: Yes: Appropriately Dressed Extremity: positive: Other (right lever tender at the heel. no deformity noted, pain with weightbearing) Moderate Sedation - Procedure Monitoring Vital Signs: Procedure Monitoring Vital Signs Temperature Pulse Rate 90 07/20/18 11:23 Respiratory Rate 18 07/20/18 11:23 Blood Pressure 168/92 07/20/18 11:23 O2 Sat by Pulse Oximetry (%) 96 07/20/18 11:23 Procedures - Splinting Splint Location: Right: Foot (heel taped for heel contusion) ED Treatment Course - RADIOLOGY Radiograph Interpretation: 07/20/18 13:00 no fracture noted Progress Note - Progress Note Progress Note: A: foot / heel pain P: patient refused pain meds heel taped. xray outpatient podiatry/ ortho follow up *DC/Admit/Observation/Transfer Diagnosis at time of Disposition: Right foot sprain Qualifiers: Encounter type: initial encounter Qualified Code(s): S93.601A - Unspecified sprain of right foot, initial encounter - Discharge Dispostion Disposition: HOME - Referrals Referrals: Yolis Sprague MD [Primary Care Provider] - Tom Lilly DPM [Staff Physician] - 24 hours Abdullahi Triana DO [Staff Physician] - 24 hours Augusto Hope MD [Staff Physician] - 24 hours - Patient Instructions Printed Discharge Instructions: DI for Foot Pain Additional Instructions: wear your heel pads. keep tape on heel. apply ice to the area follow up with a environmental engineer scientist or orthopedic doctor as soon as possible. call today for an appointment Additional Instructions: * Please call your personal physician to report your Emergency Department visit and to report your progress, if any. * If there is no improvement in symptoms in 2 days call your physician. * Return to the Emergency Department for any worsening symptoms. - Post Discharge Activity
== END 2018-07-20 13:15 | disposition home or self-care (01) ==
LOC: JERFT 11:19
DX: S93.601A Unspecified sprain of right foot, initial encounter (principal); W18.2XXA Fall in (into) shower or empty bathtub, initial encounter; Y93.E1 Activity, personal bathing and showering; Y92.031 Bathroom in apartment as the place of occurrence of the external cause; Y99.8 Other external cause status; J44.9 Chronic obstructive pulmonary disease, unspecified; K21.9 Gastro-esophageal reflux disease without esophagitis; N40.0 Benign prostatic hyperplasia without lower urinary tract symptoms
CPT/HCPCS: 73610-TC-RT-FY; 73630-TC-RT-FY; 99281-25

== ENCOUNTER 2018-11-18 09:50 | Emergency (ER) | payer OTHER ==
[2018-11-18 09:58] VITALS: BP 150/74; PULSE 117; TEMP 99.4; BMI 21.1
--- NOTE | 2018-11-18 11:15 | PDOC ---
History of Present Illness - General History Source: Patient Exam Limitations: No Limitations - History of Present Illness Initial Comments: 72 yo M w/ PMH COPD on 2LNC at home, chronic constipation on PEG, colace, HLD on simvastatin 40, p/w dysuria and burning when urinating that begin last night around 11 pm. The burning has continued this morning and he felt chills for 15 minutes until he put more layers on. He reports feeling identical symptoms 3 times previously, and was diagnosed with a UTI each time; most recent occasion was around 2 years ago. He reports extensive smoking and alcohol use in his past , up to 10 packs per day and 2 cases of beer a day, but he has not had a drink in 41 years and has not smoked in over a decade. He does report that he has extensive scarring from all the vomiting. He had a scan around 15 years ago in which he "lit up like a Joseph tree"; this was believed to be lung, prostate , and stomach cancer, however he saw a specialist and was told he did not actually have any cancer. Denies any headache, N/V, diarrhea, CP, or increased SOB or difficulty breathing as compared to his baseline. He does endorse chills. 11/18/18 11:07 <John Umana - Last Filed: 11/18/18 11:21> <Loraine Mays - Last Filed: 11/18/18 13:07> - General Chief Complaint: Urinary Problem Stated Complaint: URINARY PROBLEM Time Seen by Provider: 11/18/18 10:48 Past History - Past Medical History COPD: Yes GI Disorders: Yes (GERD) Disorders: (ENLARGED PROSTATE) Thyroid Disease: (HYPOTHYROID A CHILD) - Surgical History Appendectomy: Yes Orthopedic Surgery: (JAW SURGERY) - Immunization History Immunization Up to Date: Yes - Suicide/Smoking/Psychosocial Hx Smoking History: Never smoked Have you smoked in the past 12 months: No If you are a former smoker, when did you quit?: 2007 Hx Alcohol Use: No Drug/Substance Use Hx: No Substance Use Type: None Hx Substance Use Treatment: No <John Umana - Last Filed: 11/18/18 11:21> <Loraine Mays - Last Filed: 11/18/18 13:07> - Past Medical History Allergies/Adverse Reactions: Allergies Allergy/AdvReac Type Severity Reaction Status Date / Time acetaminophen [From Tylenol] AdvReac Verified 11/18/18 09:58 Home Medications: Ambulatory Orders Albuterol Sulfate Inhaler - [Ventolin HFA Inhaler -] 1 - 2 inh PO PRN 10/20/15 Montelukast Na [Singulair -] 10 mg PO HS 10/20/15 Tamsulosin HCl 0.4 mg PO BID 10/20/15 Tiotropium [place] [Spiriva] 1 inh IH DAILY 10/20/15 Bisacodyl [Dulcolax] 5 mg PO DAILY@1800 PRN 09/07/16 Dextrin [Fiber] 1 scoop PO DAILY@1800 09/07/16 Omeprazole 20 mg PO DAILY 09/07/16 Polyethylene Glycol 3350 [Miralax 119 gm Btl -] 17 gm PO DAILY@1800 09/07/16 Aspirin [ASA -] 325 mg PO DAILY 01/31/17 Budesonide/Formeterol Fumarate [SYMBICORT 160/4.5mcg -] 1 inh PO DAILY 01/31/17 Pantoprazole Sodium 40 mg PO DAILY 01/31/17 Simvastatin 10 mg PO DAILY 01/31/17 levoFLOXacin [Levaquin -] 500 mg PO DAILY #14 tablet 01/31/17 Cyclobenzaprine HCl [Flexeril 10 mg] 5 mg PO TID PRN #12 tablet 02/22/17 Naproxen [Naprosyn -] 500 mg PO BID PRN #14 tablet 02/22/17 Sulfamethoxazole/Trimethoprim [Bactrim Ds -] 1 tab PO BID #14 tablet 11/18/18 Review of Systems - Review of Systems Able to Perform ROS?: Yes Is the patient limited Senegalese proficient: No Constitutional: Yes: Chills, Weight Stable. No: Loss of Appetite HEENTM: No: Eye Pain, Blurred Vision, Recent change in vision, Ear Pain, Nose Pain, Hearing Loss, Throat Pain, Mouth Pain, Difficulty Swallowing Respiratory: Yes: Shortness of Breath (no different from usual COPD) Cardiac (ROS): No: Chest Pain, Irregular Heart Rate, Lightheadedness, Palpitations ABD/GI: No: Abdominal Distended, Diarrhea, Nausea, Vomiting : Yes: Burning, Dysuria, Pain. No: Discharge Neurological: No: Headache, Numbness <Umana,Nishad - Last Filed: 11/18/18 11:21> *Physical Exam - Vital Signs Last Vital Signs Temp Pulse Resp BP Pulse Ox 99.4 F 117 H 20 150/74 90 L 11/18/18 09:55 11/18/18 09:55 11/18/18 09:55 11/18/18 09:55 11/18/18 09:55 - Physical Exam General Appearance: Yes: Nourished, Appropriately Dressed HEENT: positive: EOMI, GISEL, Normal ENT Inspection, Normal Voice Neck: positive: Trachea midline, Supple. negative: Lymphadenopathy (R), Lymphadenopathy (L) Respiratory/Chest: positive: Lungs Clear Cardiovascular: positive: Regular Rhythm, Regular Rate, S1, S2. negative: Murmur Gastrointestinal/Abdominal: positive: Normal Bowel Sounds, Soft Rectal Exam: positive: deferred Musculoskeletal: positive: Normal Inspection. negative: CVA Tenderness Integumentary: positive: Warm (Hot to the touch), Clammy Neurologic: positive: ophthalmology technician II-XII NML intact, Fully Oriented, Alert, Normal Mood/ Affect, Normal Response, Motor Strength 5/5 <John Umana - Last Filed: 11/18/18 11:21> - Vital Signs Last Vital Signs Temp Pulse Resp BP Pulse Ox 99.4 F 117 H 20 150/74 90 L 11/18/18 09:55 11/18/18 09:55 11/18/18 09:55 11/18/18 09:55 11/18/18 09:55 <Loraine Mays - Last Filed: 11/18/18 13:07> ED Treatment Course - ADDITIONAL ORDERS Additional order review: Laboratory Results 11/18/18 10:55 Urine Color Yellow Urine Appearance Cloudy Urine pH 7.0 Ur Specific [place] 1.011 Urine Protein 1+ H Urine Glucose (UA) Negative Urine Ketones Negative Urine Blood 2+ H Urine Nitrite Positive H Urine Bilirubin Negative Urine Urobilinogen 0.2 Ur Leukocyte Esterase 3+ H Urine WBC (Auto) 764 Urine RBC (Auto) 77 Urine Casts (Auto) 14 U Epithel Cells (Auto) 1.9 Urine Bacteria (Auto) 1561.2 <Loraine Mays - Last Filed: 11/18/18 13:07> Medical Decision Making - Medical Decision Making Most likely etiology is UTI vs pyelonephritis vs kidney stone. Most likely UTI. Feels warm to the touch, will get rectal temperature. Will also get CMP, CBC, UA , and urine culture. 11/18/18 11:18 <John Umana - Last Filed: 11/18/18 11:21> *DC/Admit/Observation/Transfer <John Umana - Last Filed: 11/18/18 11:21> - Discharge Dispostion Decision to Admit order: No <Loraine Mays - Last Filed: 11/18/18 13:07> Diagnosis at time of Disposition: UTI (urinary tract infection) Qualifiers: Urinary tract infection type: acute cystitis Hematuria presence: without hematuria Qualified Code(s): N30.00 - Acute cystitis without hematuria - Discharge Dispostion Disposition: HOME Condition at time of disposition: Stable - Prescriptions Prescriptions: Sulfamethoxazole/Trimethoprim [Bactrim Ds -] 1 tab PO BID #14 tablet - Referrals Referrals: Yolis Sprague MD [Primary Care Provider] - - Patient Instructions - Post Discharge Activity
--- NOTE | 2018-11-18 12:00 | PDOC ---
Documentation entered by Melba Cote SCRIBE, acting as scribe for Loraine Mays MD. Loraine Mays MD: This documentation has been prepared by the Rocael tran Mackenzie, SCRIBE, under my direction and personally reviewed by me in its entirety. I confirm that the documentation accurately reflects all work , treatment, procedures, and medical decision making performed by me. Attending Attestation - Resident Resident Name: LyndsayJohn - ED Attending Attestation I have performed the following: I have examined & evaluated the patient, The case was reviewed & discussed with the resident, I agree w/resident's findings & plan, Exceptions are as noted - HPI HPI: The patient is a 72 year old male, with a significant PMH of HLD, COPD, and chronic constipation who presents to the emergency department with dysuria/ burning during urination since 11PM last night. Patient states sensation is consistent with UTIs he has had in the past. Patient notes having chills this morning and notes constant SOB consistent with his COPD. As per resident note patient also notes an abnormal scan approximately 15 years ago. The patient denies chest pain, headache and dizziness. Denies fever, nausea, vomiting, diarrhea and constipation. Denies, hematuria. Allergies: Acetaminophen Past surgical history: As per resident note Social history: Previous ETOH dependence but as of 40 years ago is sober. Previous tobacco dependence but as of 15 years ago is sober. PCP: Dr. Yolis Sprague 11/18/18 11:43 - Physicial Exam PE: GENERAL: Awake, alert, and fully oriented, in no acute distress HEAD: No signs of trauma EYES: PERRLA, EOMI, sclera anicteric, conjunctiva clear ENT: Auricles normal inspection, hearing grossly normal, nares patent, oropharynx clear without exudates. Moist mucosa NECK: Normal ROM, supple, no lymphadenopathy, JVD, or masses LUNGS: Breath sounds equal, clear to auscultation bilaterally. No wheezes, and no crackles HEART: Regular rate and rhythm, normal S1 and S2, no murmurs, rubs or gallops ABDOMEN: Soft, nontender, normoactive bowel sounds. No guarding, no rebound. No masses EXTREMITIES: Normal range of motion, no edema. No clubbing or cyanosis. No cords, erythema, or tenderness NEUROLOGICAL: Cranial nerves II through XII grossly intact. Normal speech, normal gait. Motor and sensation intact SKIN: Warm, dry, normal turgor, no rashes or lesions noted. - Medical Decision Making Pt with prior history of UTIs presents with increased urgency and burning with urination. Will obtain UA to further evaluate. 11/18/18 13:21 Urine is grossly positive. Will treat with bactrim. Stable for DC home.
[2018-11-18 12:52] LABS: EPI CELLS 1.9 /HPF (0-5/HPF); HYALINE CASTS 14 /lpf (0-8); URINE APPEARANCE CLOUDY; URINE BACTERIA 1561.2 /hpf (NEGATIVE); URINE BILIRUBIN NEGATIVE (NEGATIVE); URINE COLOR YELLOW; URINE GLUCOSE (UA) NEGATIVE (NEGATIVE); URINE KETONE NEGATIVE (NEGATIVE); URINE LEUK ESTERASE 3+ (NEGATIVE); URINE NITRITE POSITIVE (NEGATIVE); URINE PROTEIN 1+ (NEGATIVE); URINE RBC 77 /hpf (0-4); URINE UROBILINOGEN 0.2 mg/dL (0.2-1.0); URINE WBC 764 /hpf (0-5)
[2018-11-18] MEDS ORDERED: SULFAMETHOXAZOLE/TRIMETHOPRIM 800MG/160MG D.S. TABLET PO ONE (13:06)
[2018-11-18] MEDS ORDERED: SULFAMETHOXAZOLE/TRIMETHOPRIM 800MG/160MG D.S. TABLET ONE (13:29)
== END 2018-11-18 13:33 | disposition home or self-care (01) ==
LOC: JER 09:50
DX: N30.00 Acute cystitis without hematuria (principal); J44.9 Chronic obstructive pulmonary disease, unspecified; K59.04 Chronic idiopathic constipation; N40.0 Benign prostatic hyperplasia without lower urinary tract symptoms; E78.5 Hyperlipidemia, unspecified; Z93.1 Gastrostomy status; Z99.81 Dependence on supplemental oxygen
CPT/HCPCS: 81003; 87086; 87186; 99281-25

== ENCOUNTER 2018-11-20 10:30 | Emergency (ER) | payer OTHER ==
[2018-11-20 10:41] VITALS: BMI 20.3
--- NOTE | 2018-11-20 10:59 | PDOC ---
History of Present Illness - General Chief Complaint: Weakness Stated Complaint: WEAKNESS/UTI History Source: Patient Exam Limitations: No Limitations - History of Present Illness Initial Comments: 11/20/18 10:59 72y M hx of COPD on 2l NC, chronic constpation, HL, presents with generalized weakness and poor appetitie. Pt notes he had dysuria, came to the ED and was dx with a UTI and was compliaint with his abx, but has been feeling persistently weak. Denies any fever/chills, cp, sob, cough, diarrhea, melena, bpr, palpitations, abd pain, back pain. Notes his dysuria is improved from tuesday. +prior extensive smoking, non curently. remote etoh abuse, but non recently Past History - Past Medical History Allergies/Adverse Reactions: Allergies Allergy/AdvReac Type Severity Reaction Status Date / Time acetaminophen [From Tylenol] AdvReac Verified 11/20/18 10:41 Home Medications: Ambulatory Orders Albuterol Sulfate Inhaler - [Ventolin HFA Inhaler -] 1 - 2 inh PO PRN 10/20/15 Montelukast Na [Singulair -] 10 mg PO HS 10/20/15 Tamsulosin HCl 0.4 mg PO BID 10/20/15 Tiotropium [place] [Spiriva] 1 inh IH DAILY 10/20/15 Bisacodyl [Dulcolax] 5 mg PO DAILY@1800 PRN 09/07/16 Dextrin [Fiber] 1 scoop PO DAILY@1800 09/07/16 Omeprazole 20 mg PO DAILY 09/07/16 Polyethylene Glycol 3350 [Miralax 119 gm Btl -] 17 gm PO DAILY@1800 09/07/16 Aspirin [ASA -] 325 mg PO DAILY 01/31/17 Budesonide/Formeterol Fumarate [SYMBICORT 160/4.5mcg -] 1 inh PO DAILY 01/31/17 Pantoprazole Sodium 40 mg PO DAILY 01/31/17 Simvastatin 10 mg PO DAILY 01/31/17 levoFLOXacin [Levaquin -] 500 mg PO DAILY #14 tablet 01/31/17 Cyclobenzaprine HCl [Flexeril 10 mg] 5 mg PO TID PRN #12 tablet 02/22/17 Naproxen [Naprosyn -] 500 mg PO BID PRN #14 tablet 10/10/17 Sulfamethoxazole/Trimethoprim [Bactrim Ds -] 1 tab PO BID #14 tablet 11/18/18 Cephalexin Monohydrate [Keflex -] 500 mg PO BID #14 capsule 11/20/18 COPD: Yes GI Disorders: Yes (GERD) Disorders: (ENLARGED PROSTATE) Thyroid Disease: (HYPOTHYROID A CHILD) - Surgical History Appendectomy: Yes Orthopedic Surgery: (JAW SURGERY) - Immunization History Immunization Up to Date: Yes - Suicide/Smoking/Psychosocial Hx Smoking History: Never smoked Have you smoked in the past 12 months: No If you are a former smoker, when did you quit?: 2007 Hx Alcohol Use: No Drug/Substance Use Hx: No Substance Use Type: None Hx Substance Use Treatment: No Review of Systems - Review of Systems Able to Perform ROS?: Yes Comments:: 11/20/18 11:01 Constitutional - +malaise, generally weak, poor apptetite, no reported Fever, Chills, HEENT: no reported vision changes, sore throat Respiratory: no reported cough, sob, hemoptysis Cardiac: no reported chest pain, palpitations, light headedness, leg swelling Abd/GI: no reported abd pain, nausea, vomiting, blood per rectum, melena, diarrhea : no reported dysuria, frequency, discharge Musculskelatal - no reported back pain, joint swelling skin - no reported bruising, erythema, rash neurological: no reported headache, numbness, focal weakness, tingling, ataxia, hematologic: no reported easy bruising, easy bleeding *Physical Exam - Vital Signs Last Vital Signs Temp Pulse Resp BP Pulse Ox 97.4 F L 93 H 17 118/67 90 L 11/20/18 10:38 11/20/18 10:38 11/20/18 10:38 11/20/18 10:38 11/20/18 10:38 - Physical Exam Comments: 11/20/18 11:13 GENERAL: The patient is awake, alert, and fully oriented, Nontoxic - in no acute distress. HEAD: Normocephalic, atraumatic. EYES: extraocular movements intact, sclera anicteric, conjunctiva clear. ENT: Normal voice, dry mucous membranes. NECK: Normal range of motion, supple LUNGS: Breath sounds equal, clear to auscultation bilaterally. No wheezes, no rhonchi, no rales. HEART: Regular rate and rhythm, normal S1 and S2 without murmur, rub or gallop. ABDOMEN: Soft, nontender, No guarding, no rebound. No CVA tenderness EXTREMITIES: Normal range of motion, no edema. NEUROLOGICAL: No facial assymetry, Normal speech, PSYCH: Normal mood, normal affect. SKIN: Warm, Dry, normal turgor, Heart Score/ECG Review - ECG Impressions Comment:: 11/20/18 11:15 Twelve-lead EKG was performed and reviewed by me. There is normal sinus rhythm with a normal rate. rate of 84 The axis is normal. The intervals are normal. There is normal R wave progression There are no ST or T wave abnormalities. Impression: Normal twelve-lead EKG ED Treatment Course - LABORATORY CBC & Chemistry Diagram: 11/20/18 13:10 11/20/18 13:10 Medical Decision Making - Medical Decision Making 11/20/18 11:13 will obtain blood work to screen for systemic infection fluids for hydation as pt appears clinically dry 11/20/18 17:16 pts labs reviewed pt feeling improved after hydration Urien culture from previous visit resistant to bactrim will give dose of ctx here and change to keflex will have pt fu with PMD in 2-3 days return precuations were dsicussed I discussed the physical exam findings, ancillary test results and final diagnoses with the patient. I answered all of the patient's questions. The patient was satisfied with the care received and felt comfortable with the discharge plan and treatment plan. The patient will call their primary care physician within 24 hours to arrange follow-up and will return to the Emergency Department with any new, persistent or worsening symptoms. *DC/Admit/Observation/Transfer Diagnosis at time of Disposition: UTI (urinary tract infection) Qualifiers: Urinary tract infection type: site unspecified Hematuria presence: with hematuria Qualified Code(s): N39.0 - Urinary tract infection, site not specified ; R31.9 - Hematuria, unspecified - Discharge Dispostion Disposition: HOME Condition at time of disposition: Stable Decision to Admit order: No - Prescriptions Prescriptions: Cephalexin Monohydrate [Keflex -] 500 mg PO BID #14 capsule - Referrals Referrals: Yolis Sprague MD [Primary Care Provider] - - Patient Instructions Printed Discharge Instructions: DI for Urinary Tract Infection (UTI) Additional Instructions: Return to the emergency department immediately with ANY new, persistent or worsening symptoms including worsening abdominal pain, fevers, inability to tolerate oral intake, chest pain, shortness of breath or any other concerns. Stay well hydrated. You MUST call and follow up with your doctor tomorrow. Your emergency department visit is not complete without a followup with your doctor for reevaluation. Please make sure your doctor reviews the results of your emergency evaluation. - Post Discharge Activity
[2018-11-20] MEDS ORDERED: SULFAMETHOXAZOLE/TRIMETHOPRIM 800MG/160MG D.S. TABLET PO ONE (11:15)
[2018-11-20] MEDS ORDERED: SULFAMETHOXAZOLE/TRIMETHOPRIM 800MG/160MG D.S. TABLET ONE (12:45)
[2018-11-20 13:25] LABS: BASO % 0.3 % (0-2.0); HEMATOCRIT 43.6 % (35.4-49); LYMPH % 2.4 % (8-40); MCHC 34.3 g/dl (32.0-35.9); MEAN CELL VOLUME 93.2 fl (80-96); MEAN PLT VOLUME 9.6 fl (7.5-11.1); MONO % 3.5 % (3.8-10.2); NEUT % 93.8 % (42.8-82.8); PLATELET COUNT 156 K/MM3 (134-434); RBC 4.68 M/mm3 (4.00-5.60); RDW 13.9 % (11.9-15.9)
[2018-11-20] MEDS ORDERED: SODIUM CHLORIDE 1,000 ML IV ONE (14:19)
[2018-11-20 14:39] LABS: ALBUMIN 3.3 g/dl (3.4-5.0); BILIRUBIN,TOTAL 0.5 mg/dL (0.2-1); CALCIUM 8.6 mg/dL (8.5-10.1); CREATININE 1.5 mg/dL (0.55-1.3); POTASSIUM 4.2 mmol/L (3.5-5.1); TOT PROT 6.7 g/dl (6.4-8.2)
[2018-11-20 15:13] LABS: BLOOD UREA NITROGEN 22.4 mg/dL (7-18)
[2018-11-20 15:20] LABS: ANISOCYTOSIS 2+; MACROCYTOSIS 0; PLATELET ESTIMATE DECREASED; TEAR DROP CELLS 1+
[2018-11-20] MEDS ORDERED: CEFTRIAXONE 1 GM in DEXTROSE 5%-WATER - 50 ML IVPB ONE (17:16)
[2018-11-20 18:35] VITALS: BP 134/80; PULSE 87; TEMP 97.9
--- NOTE | 2018-11-20 18:53 | EKG ---
Test Reason : Blood Pressure : / mmHG Vent. Rate : 084 BPM Atrial Rate : 084 BPM P-R Int : 182 ms QRS Dur : 090 ms QT Int : 352 ms P-R-T Axes : 055 049 055 degrees QTc Int : 415 ms POOR DATA QUALITY, INTERPRETATION MAY BE ADVERSELY AFFECTED NORMAL SINUS RHYTHM NORMAL ECG WHEN COMPARED WITH ECG OF 31-JAN-2017 10:51, PREMATURE VENTRICULAR COMPLEXES ARE NO LONGER PRESENT Confirmed by MAXI SAHU MD ([id number]) on 11/20/2018 6:52:49 PM Referred By: Confirmed By:MAXI SAHU MD
== END 2018-11-20 18:20 | disposition home or self-care (01) ==
LOC: JER 10:30
PROC: 3E0337Z Introduction of Electrolytic and Water Balance Substance into Peripheral Vein, Percutaneous Approach (ICD-10-PCS; principal; 2018-11-20)
DX: N39.0 Urinary tract infection, site not specified (principal); R31.9 Hematuria, unspecified; J44.9 Chronic obstructive pulmonary disease, unspecified; Z99.81 Dependence on supplemental oxygen; K59.04 Chronic idiopathic constipation; E78.5 Hyperlipidemia, unspecified
CPT/HCPCS: 36415; 80053; 85025; 93005; 93010; 99282-25; J7030

== ENCOUNTER 2023-01-10 09:55 | Emergency (ER) | payer OTHER ==
[2023-01-10 10:15] VITALS: BP 128/77; RESP 20; TEMP 97.6; BMI 19.6
[2023-01-10] MEDS ORDERED: SODIUM CHLORIDE 0.9% 500 ML INFUS.BAG IV ONE (10:55)
[2023-01-10 11:28] VITALS: PULSE 68
[2023-01-10 11:32] LABS: BASO % 0.4 % (0-2.0); EOS % 5.8 % (0-4.5); HEMATOCRIT 44.7 % (35.4-49); HEMOGLOBIN 15.2 GM/dL (11.7-16.9); LYMPH % 7.8 % (8-40); MCH 29.8 pg (25.7-33.7); MCHC 33.9 g/dl (32.0-35.9); MEAN CELL VOLUME 87.9 fl (80-96); MONO % 10.2 % (3.8-10.2); NEUT % 75.8 % (42.8-82.8); PLATELET COUNT 220 10^3/uL (134-434); RBC 5.09 M/mm3 (4.00-5.60); RDW 12.7 % (11.9-15.9); WHITE BLOOD COUNT 6.7 K/mm3 (4.0-10.0)
[2023-01-10 11:39] LABS: INR 1.07 (0.83-1.09); PROTHROMBIN TIME (PATIENT) 12.4 SEC (9.7-13.0)
[2023-01-10 11:42] LABS: ACTIVATED PTT 34.5 SECONDS (25.2-36.5)
[2023-01-10 11:53] LABS: POTASSIUM 4.5 mmol/L (3.5-5.1)
[2023-01-10 11:59] LABS: ALBUMIN 3.5 g/dl (3.4-5.0); BLOOD UREA NITROGEN 17.6 mg/dL (7-18); CALCIUM 8.9 mg/dL (8.5-10.1); MAGNESIUM 2.1 mg/dL (1.8-2.4)
[2023-01-10 12:01] LABS: CREATININE 1.1 mg/dL (0.55-1.3)
[2023-01-10 12:03] LABS: BILIRUBIN,TOTAL 0.4 mg/dL (0.2-1); TOT PROT 6.8 g/dl (6.4-8.2)
[2023-01-10 12:07] LABS: N-TERMINAL BNP 85.6 pg/ml (5-450)
[2023-01-10 12:57] LABS: URINE APPEARANCE CLEAR; URINE BILIRUBIN NEGATIVE (NEGATIVE); URINE COLOR DK YELLOW; URINE GLUCOSE (UA) NEGATIVE (NEGATIVE); URINE KETONE NEGATIVE (NEGATIVE); URINE LEUK ESTERASE NEGATIVE (NEGATIVE); URINE NITRITE NEGATIVE (NEGATIVE); URINE PROTEIN NEGATIVE (NEGATIVE)
== END 2023-01-10 13:33 | disposition home or self-care (01) ==
LOC: JER 09:55
DX: R53.1 Weakness (principal); R06.02 Shortness of breath; M79.10 Myalgia, unspecified site; R23.2 Flushing; R53.81 Other malaise; Z20.822 Contact with and (suspected) exposure to COVID-19
CPT/HCPCS: 0241U-QW; 36415; 71045-TC-FY; 80053; 81003; 82550; 83735; 83880; 84484; 85025; 85610; 85730; 87086; 93005; 93010; 99285-25

== ENCOUNTER 2023-10-17 10:18 | Observation (INO) | payer OTHER ==
[2023-10-17] MEDS ORDERED: ALBUTEROL SO4 2.5/IPRATROPIUM 0.5 INH SOL 3 ML VIAL.NEB. NEB ONE ×2 (11:09→12:14)
[2023-10-17] MEDS ORDERED: methylPREDNISolone NA SUCC 125 MG/2 ML VIAL ONE (11:09)
[2023-10-17] MEDS: methylPREDNISolone NA SUCC 125 MG/2 ML VIAL IVPUSH ONE (11:10)
[2023-10-17] MEDS: ALBUTEROL SO4 2.5/IPRATROPIUM 0.5 INH SOL 3 ML VIAL.NEB. NEB ONE (11:10)
[2023-10-17 11:11] LABS: VENOUS BASE EXCESS 3.5 mmol/L (-2-2); VENOUS O2 SATURATION 44.7 % (70-80); VENOUS PCO2 60.6 mmHg (38-52); VENOUS PH 7.332 (7.310-7.410)
[2023-10-17 11:12] LABS: BASO % 0.3 % (0-2.0); EOS % 5.2 % (0-4.5); HEMATOCRIT 43.3 % (35.4-49); LYMPH % 7.3 % (8-40); MCH 31.8 pg (25.7-33.7); MCHC 34.7 g/dl (32.0-35.9); MEAN CELL VOLUME 91.6 fl (80-96); MONO % 6.7 % (3.8-10.2); NEUT % 80.5 % (42.8-82.8); PLATELET COUNT 158 10^3/uL (134-434); RBC 4.73 M/mm3 (4.00-5.60); RDW 13.9 % (11.9-15.9); WHITE BLOOD COUNT 8.6 K/mm3 (4.0-10.0)
[2023-10-17 11:25] LABS: INR 0.95 (0.83-1.09); PROTHROMBIN TIME (PATIENT) 10.7 SEC (9.7-13.0)
[2023-10-17 11:27] LABS: ACTIVATED PTT 30.5 SECONDS (25.2-36.5)
[2023-10-17 11:36] LABS: POTASSIUM 4.3 mmol/L (3.5-5.1)
[2023-10-17 11:38] LABS: ALBUMIN 3.3 g/dl (3.4-5.0); BLOOD UREA NITROGEN 18.7 mg/dL (7-18); CALCIUM 8.8 mg/dL (8.5-10.1)
[2023-10-17 11:41] LABS: CREATININE 1.1 mg/dL (0.55-1.3)
[2023-10-17 11:43] LABS: BILIRUBIN,TOTAL 0.5 mg/dL (0.2-1); TOT PROT 6.2 g/dl (6.4-8.2)
[2023-10-17] MEDS ORDERED: MAGNESIUM SULFATE IN WATER 2 GM/50 ML IVPB IVPB ONE (12:14)
[2023-10-17] MEDS: MAGNESIUM SULF 50% (8.12 MEQ/2 ML-1 GM VIAL) IVPB ONE (12:15)
[2023-10-17] MEDS: ALBUTEROL SO4 2.5/IPRATROPIUM 0.5 INH SOL 3 ML VIAL.NEB. NEB SCH ×2 (12:15→15:35)
[2023-10-17 17:18] VITALS: BMI 19.2
[2023-10-17] MEDS: TAMSULOSIN HCL 0.4 MG CAP PO SCH (22:31)
[2023-10-17] MEDS: HEPARIN NA (PORCINE) 5,000 UNITS/ML 1ML VIAL SQ SCH (22:31)
[2023-10-17] MEDS: MONTELUKAST NA 10 MG TABLET PO SCH (22:31)
[2023-10-18 06:55] VITALS: RESP 20
[2023-10-18] MEDS ORDERED: TIOTROPIUM BROMIDE 2.5 MCG (SPIRIVA) RESPIMAT INHALER IH SCH (10:00)
[2023-10-18] MEDS: PANTOPRAZOLE 40 MG TABLET PO SCH (10:40)
[2023-10-18] MEDS: predniSONE 20 MG TABLET (UD) PO SCH (10:40)
[2023-10-18] MEDS: DOCUSATE SODIUM 100 MG CAPSULE (FP) PO SCH (10:41)
[2023-10-18] MEDS: OXYBUTYNIN CHLORIDE 5 MG TABLET PO SCH (10:41)
[2023-10-18] MEDS: ATORVASTATIN CA 10 MG TABLET (FP) PO SCH (10:44)
[2023-10-18] MEDS: FLUTICASONE/UMECLIDIN/VILANTER(200-62.5-25 TRELEGY ELLIPTA) INAHLER IH SCH (10:45)
[2023-10-18 11:10] LABS: BASO % 0.1 % (0-2.0); EOS % 1.5 % (0-4.5); HEMATOCRIT 40.7 % (35.4-49); HEMOGLOBIN 13.9 GM/dL (11.7-16.9); LYMPH % 5.6 % (8-40); MCH 31.2 pg (25.7-33.7); MCHC 34.1 g/dl (32.0-35.9); MEAN CELL VOLUME 91.3 fl (80-96); MEAN PLT VOLUME 10.3 fl (7.5-11.1); MONO % 5.7 % (3.8-10.2); NEUT % 87.1 % (42.8-82.8); PLATELET COUNT 174 10^3/uL (134-434); RBC 4.45 M/mm3 (4.00-5.60); RDW 13.2 % (11.9-15.9); WHITE BLOOD COUNT 10.9 K/mm3 (4.0-10.0)
[2023-10-18 11:29] LABS: POTASSIUM 3.9 mmol/L (3.5-5.1)
[2023-10-18 11:33] LABS: CALCIUM 8.8 mg/dL (8.5-10.1)
[2023-10-18 11:34] LABS: BLOOD UREA NITROGEN 16.8 mg/dL (7-18)
[2023-10-18 15:38] VITALS: BP 115/68; PULSE 112; TEMP 97.3
== END 2023-10-18 17:14 | disposition home or self-care (01) ==
LOC: JER 10:18 → JERBED 13:29 → UNDOADMOB 13:29 → INTOOBSV 13:29 → JERBED 13:40 → J5S 15:23 → JERBED 15:23
PROVIDERS: ADMIT Internal Medicine; ATTEND Internal Medicine
DX: J44.1 Chronic obstructive pulmonary disease with (acute) exacerbation (principal); R05.3 Chronic cough; E78.5 Hyperlipidemia, unspecified; N40.0 Benign prostatic hyperplasia without lower urinary tract symptoms; J96.11 Chronic respiratory failure with hypoxia; H40.9 Unspecified glaucoma; Z98.49 Cataract extraction status, unspecified eye; Z88.6 Allergy status to analgesic agent
CPT/HCPCS: 0241U-QW; 36415; 71045-TC-FY; 80048; 80053; 82803; 83880; 84484; 85025; 85610; 85730; 86850; 86900; 86901; 93005; 93010; 94640; 94761; 96372; 96374; 96375; 99285-25; G0378; J1644

== ENCOUNTER 2023-10-25 10:35 | Emergency (ER) | payer OTHER ==
[2023-10-25 10:40] VITALS: TEMP 98.1; BMI 19.8
[2023-10-25] MEDS ORDERED: ALBUTEROL SO4 2.5/IPRATROPIUM 0.5 INH SOL 3 ML VIAL.NEB. NEB ONE (10:50)
[2023-10-25 12:03] LABS: VENOUS BASE EXCESS 0.5 mmol/L (-2-2); VENOUS O2 SATURATION 56.6 % (70-80); VENOUS PCO2 54.5 mmHg (38-52); VENOUS PH 7.324 (7.310-7.410)
[2023-10-25 12:04] LABS: INR 1.03 (0.83-1.09); PROTHROMBIN TIME (PATIENT) 11.6 SEC (9.7-13.0)
[2023-10-25 12:05] LABS: BASO % 0.1 % (0-2.0); EOS % 0.5 % (0-4.5); HEMATOCRIT 42.1 % (35.4-49); HEMOGLOBIN 14.5 GM/dL (11.7-16.9); LYMPH % 5.7 % (8-40); MCH 31.4 pg (25.7-33.7); MCHC 34.5 g/dl (32.0-35.9); MEAN CELL VOLUME 91.1 fl (80-96); MONO % 4.5 % (3.8-10.2); NEUT % 89.2 % (42.8-82.8); PLATELET COUNT 145 10^3/uL (134-434); RBC 4.62 M/mm3 (4.00-5.60); RDW 13.4 % (11.9-15.9); WHITE BLOOD COUNT 7.5 K/mm3 (4.0-10.0)
[2023-10-25 12:07] LABS: ACTIVATED PTT 28.7 SECONDS (25.2-36.5)
[2023-10-25] MEDS: ALBUTEROL SO4 2.5/IPRATROPIUM 0.5 INH SOL 3 ML VIAL.NEB. NEB SCH (12:15)
[2023-10-25 12:17] LABS: POTASSIUM 3.9 mmol/L (3.5-5.1)
[2023-10-25 12:19] LABS: ALBUMIN 3.3 g/dl (3.4-5.0); BLOOD UREA NITROGEN 21.4 mg/dL (7-18); CALCIUM 8.5 mg/dL (8.5-10.1)
[2023-10-25 12:24] LABS: BILIRUBIN,TOTAL 0.7 mg/dL (0.2-1); TOT PROT 5.9 g/dl (6.4-8.2)
[2023-10-25 12:27] LABS: N-TERMINAL BNP 193.4 pg/ml (5-450)
[2023-10-25 16:42] VITALS: RESP 20
[2023-10-25 16:43] VITALS: BP 139/73; PULSE 68
== END 2023-10-25 16:44 | disposition home or self-care (01) ==
LOC: JER 10:35
PROC: 3E0F7GC Introduction of Other Therapeutic Substance into Respiratory Tract, Via Natural or Artificial Opening (ICD-10-PCS; principal; 2023-10-25)
DX: J44.1 Chronic obstructive pulmonary disease with (acute) exacerbation (principal); R06.02 Shortness of breath; R05.9 Cough, unspecified; R09.81 Nasal congestion; Z20.822 Contact with and (suspected) exposure to COVID-19; Z87.891 Personal history of nicotine dependence
CPT/HCPCS: 0241U-QW; 36415; 71045-TC-FY; 80053; 82803; 83880; 84484; 85025; 85610; 85730; 86850; 86900; 86901; 93005; 93010; 99285-25

== ENCOUNTER 2023-11-04 22:49 | Observation (INO) | payer OTHER ==
[2023-11-04] MEDS: ALBUTEROL SO4 2.5/IPRATROPIUM 0.5 INH SOL 3 ML VIAL.NEB. NEB SCH (23:33)
[2023-11-04] MEDS ORDERED: ALBUTEROL SO4 2.5/IPRATROPIUM 0.5 INH SOL 3 ML VIAL.NEB. NEB ONE (23:35)
[2023-11-05 00:09] LABS: VENOUS BASE EXCESS 3.5 mmol/L (-2-2); VENOUS O2 SATURATION 55.7 % (70-80); VENOUS PCO2 62.7 mmHg (38-52); VENOUS PH 7.32 (7.310-7.410)
[2023-11-05 00:12] LABS: HEMATOCRIT 40.2 % (35.4-49); HEMOGLOBIN 13.4 GM/dL (11.7-16.9); MCH 30.4 pg (25.7-33.7); MCHC 33.4 g/dl (32.0-35.9); MEAN PLT VOLUME 9.7 fl (7.5-11.1); PLATELET COUNT 163 10^3/uL (134-434); RBC 4.42 M/mm3 (4.00-5.60); RDW 13.1 % (11.9-15.9); WHITE BLOOD COUNT 9.4 K/mm3 (4.0-10.0)
[2023-11-05 00:23] LABS: INR 1.08 (0.83-1.09); PROTHROMBIN TIME (PATIENT) 12.2 SEC (9.7-13.0)
[2023-11-05 00:25] LABS: ACTIVATED PTT 30.1 SECONDS (25.2-36.5)
[2023-11-05 00:31] LABS: POTASSIUM 4.2 mmol/L (3.5-5.1)
[2023-11-05 00:34] LABS: ALBUMIN 3.1 g/dl (3.4-5.0); BLOOD UREA NITROGEN 25.2 mg/dL (7-18); CALCIUM 8.8 mg/dL (8.5-10.1); MAGNESIUM 2.2 mg/dL (1.8-2.4)
[2023-11-05 00:37] LABS: CREATININE 1.1 mg/dL (0.55-1.3)
[2023-11-05 00:39] LABS: BILIRUBIN,TOTAL 0.3 mg/dL (0.2-1); TOT PROT 6.2 g/dl (6.4-8.2)
[2023-11-05] MEDS: CEFTRIAXONE 1 GM in DEXTROSE 5%-WATER - 50 ML IVPB ONE (02:09)
[2023-11-05] MEDS: AZITHROMYCIN IVPB 500 MG in DEXTROSE 5%-WATER - 250 ML IVPB ONE (02:09)
[2023-11-05] MEDS: methylPREDNISolone NA SUCC 125 MG/2 ML VIAL IVPUSH ONE (02:09)
[2023-11-05] MEDS ORDERED: methylPREDNISolone NA SUCC 125 MG/2 ML VIAL ONE (02:10)
[2023-11-05] MEDS ORDERED: AZITHROMYCIN IVPB 500 MG/250 ML BAG IVPB ONE (02:11)
[2023-11-05] MEDS ORDERED: CEFTRIAXONE 1 GM/50 ML BAG ONE (02:11)
[2023-11-05 02:14] LABS: ANISOCYTOSIS 0; MACROCYTOSIS 0
[2023-11-05 06:15] LABS: HEMATOCRIT 37.4 % (35.4-49); HEMOGLOBIN 12.5 GM/dL (11.7-16.9); MCH 30.4 pg (25.7-33.7); MCHC 33.4 g/dl (32.0-35.9); MEAN CELL VOLUME 90.9 fl (80-96); MEAN PLT VOLUME 10.3 fl (7.5-11.1); PLATELET COUNT 162 10^3/uL (134-434); RBC 4.12 M/mm3 (4.00-5.60); RDW 12.8 % (11.9-15.9); WHITE BLOOD COUNT 9.6 K/mm3 (4.0-10.0)
[2023-11-05 06:25] LABS: POTASSIUM 3.9 mmol/L (3.5-5.1)
[2023-11-05 06:27] LABS: CALCIUM 8.5 mg/dL (8.5-10.1)
[2023-11-05 06:28] LABS: ALBUMIN 2.8 g/dl (3.4-5.0); BLOOD UREA NITROGEN 22.6 mg/dL (7-18)
[2023-11-05 06:31] LABS: CREATININE 1.1 mg/dL (0.55-1.3)
[2023-11-05 06:32] LABS: BILIRUBIN,TOTAL 0.2 mg/dL (0.2-1); TOT PROT 5.3 g/dl (6.4-8.2)
[2023-11-05] MEDS: PANTOPRAZOLE 40 MG TABLET PO SCH (08:00)
[2023-11-05 08:35] LABS: ARTERIAL BLD GAS O2 SATURATION 93.7 % (95-98); ARTERIAL BLOOD GAS BASE EXCESS 3.1 mmol/L (-2-2); ARTERIAL BLOOD GAS pH 7.397 (7.350-7.450)
[2023-11-05 08:36] LABS: ALLENS TEST POSITIVE
[2023-11-05] MEDS ORDERED: ALBUTEROL SO4 2.5/IPRATROPIUM 0.5 INH SOL 3 ML VIAL.NEB. NEB ONE (08:38)
[2023-11-05] MEDS ORDERED: TAMSULOSIN HCL 0.4 MG CAP ONE (08:38)
[2023-11-05] MEDS ORDERED: PANTOPRAZOLE 40 MG TABLET PO ONE (08:38)
[2023-11-05] MEDS ORDERED: methylPREDNISolone NA SUCC 40 MG/1 ML VIAL ONE (08:39)
[2023-11-05] MEDS: methylPREDNISolone NA SUCC 40 MG/1 ML VIAL IVPUSH SCH (08:57)
[2023-11-05] MEDS: TAMSULOSIN HCL 0.4 MG CAP PO SCH (08:57)
[2023-11-05] MEDS: BUDESONIDE 0.25 MG/2ML INH SUSP VIAL NEB SCH (09:06)
[2023-11-05] MEDS: ALBUTEROL SO4 2.5/IPRATROPIUM 0.5 INH SOL 3 ML VIAL.NEB. NEB SCH (09:06)
[2023-11-05] MEDS ORDERED: FLUTICASONE/UMECLIDIN/VILANTER(100-62.5-25 TRELEGY ELLIPTA) INAHLER IH SCH (10:00)
[2023-11-05 10:53] VITALS: BMI 18.7
[2023-11-05] MEDS: ASPIRIN COATED 81 MG TABLET.EC PO SCH (11:00)
[2023-11-05] MEDS: amLODIPine BESYLATE 5 MG TABLET (FP) PO SCH (11:00)
[2023-11-05] MEDS: FINASTERIDE 5 MG TABLET (FP) PO SCH (11:00)
[2023-11-05] MEDS: ROFLUMILAST 500 MCG TABLET PO SCH (12:55)
[2023-11-05] MEDS: ALBUTEROL SO4 0.083% IH SOL 2.5 MG/3 ML VIAL.NEB. NEB SCH (14:20)
[2023-11-05] MEDS: FLUTICASONE/UMECLIDIN/VILANTER(100-62.5-25 TRELEGY ELLIPTA) INAHLER IH SCH (15:00)
[2023-11-05] MEDS: MONTELUKAST NA 10 MG TABLET PO SCH (21:38)
[2023-11-05] MEDS: ROSUVASTATIN CA 20 MG TABLET PO SCH (21:38)
[2023-11-05] MEDS: MIRTAZAPINE 15 MG TABLET (FP) PO SCH (21:39)
[2023-11-06 08:39] LABS: POTASSIUM 4.4 mmol/L (3.5-5.1)
[2023-11-06 08:44] LABS: HEMATOCRIT 37.7 % (35.4-49); HEMOGLOBIN 12.6 GM/dL (11.7-16.9); MCH 30.2 pg (25.7-33.7); MCHC 33.5 g/dl (32.0-35.9); MEAN CELL VOLUME 90.1 fl (80-96); MEAN PLT VOLUME 10.3 fl (7.5-11.1); PLATELET COUNT 178 10^3/uL (134-434); RBC 4.18 M/mm3 (4.00-5.60); RDW 12.7 % (11.9-15.9); WHITE BLOOD COUNT 12.6 K/mm3 (4.0-10.0)
[2023-11-06 09:03] LABS: BLOOD UREA NITROGEN 19.2 mg/dL (7-18); CALCIUM 8.6 mg/dL (8.5-10.1)
[2023-11-06 09:07] LABS: CREATININE 0.9 mg/dL (0.55-1.3)
[2023-11-06 10:42] LABS: ANISOCYTOSIS 0; HELMET CELLS 0; HOWELL-JOLLY BODIES 0; MACROCYTOSIS 0; OVALOCYTE 0; ROULEAU 0; SICKELED CELLS 0; TARGET CELLS 0; TEAR DROP CELLS 0; TOXIC GRANULATION 0
[2023-11-07 16:16] VITALS: RESP 20
[2023-11-07 18:16] VITALS: BP 117/67; PULSE 105; TEMP 97.2
[2023-11-08] MEDS ORDERED: AZITHROMYCIN 250 MG TABLET PO SCH (10:00)
== END 2023-11-07 18:31 | disposition home or self-care (01) ==
LOC: JER 22:49 → UNDOADMOB 11-05 01:48 → JERBED 11-05 01:48 → J5S 11-05 09:42 → OBSVTOIN 11-05 12:46 → INTOOBSV 11-05 12:46 → J5S 11-06 16:51 → JERBED 11-06 16:51
PROVIDERS: ADMIT Internal Medicine; ATTEND Internal Medicine
PROC: 3E03329 Introduction of Other Anti-infective into Peripheral Vein, Percutaneous Approach (ICD-10-PCS; principal; 2023-11-06)
PROC: 3E033GC Introduction of Other Therapeutic Substance into Peripheral Vein, Percutaneous Approach (ICD-10-PCS; 2023-11-06)
PROC: 3E0F7GC Introduction of Other Therapeutic Substance into Respiratory Tract, Via Natural or Artificial Opening (ICD-10-PCS; 2023-11-06)
DX: J44.1 Chronic obstructive pulmonary disease with (acute) exacerbation (principal); Z99.81 Dependence on supplemental oxygen; E78.5 Hyperlipidemia, unspecified; Z90.49 Acquired absence of other specified parts of digestive tract; I10 Essential (primary) hypertension; J96.01 Acute respiratory failure with hypoxia; Z98.49 Cataract extraction status, unspecified eye; N40.0 Benign prostatic hyperplasia without lower urinary tract symptoms; Z88.8 Allergy status to other drugs, medicaments and biological substances; Z87.891 Personal history of nicotine dependence
CPT/HCPCS: 0241U-QW; 36415; 36600; 71045-TC-FY; 71250-TC; 80048; 80053; 82550; 82803; 83735; 84484; 85025; 85027; 85610; 85730; 87070; 87205; 87899; 93005; 93010; 94640; 96365; 96367; 96375; 96376; 99285-25; G0378

== ENCOUNTER 2023-11-08 19:19 | Inpatient (IN) | payer OTHER ==
[2023-11-08] MEDS ORDERED: ALBUTEROL SO4 2.5/IPRATROPIUM 0.5 INH SOL 3 ML VIAL.NEB. NEB ONE (20:22)
[2023-11-08] MEDS ORDERED: PIPERACILLIN/TAZOB 4.5 GM 4.5 GM/100 ML BAG IVPB ONE (20:23)
[2023-11-08 20:24] LABS: VENOUS O2 SATURATION 46.4 % (70-80); VENOUS PCO2 52.8 mmHg (38-52); VENOUS PH 7.368 (7.310-7.410)
[2023-11-08 20:25] LABS: BASO % 0.1 % (0-2.0); EOS % 0.5 % (0-4.5); HEMATOCRIT 43.1 % (35.4-49); HEMOGLOBIN 14.7 GM/dL (11.7-16.9); LYMPH % 1.6 % (8-40); MCH 30.5 pg (25.7-33.7); MCHC 34.1 g/dl (32.0-35.9); MEAN CELL VOLUME 89.4 fl (80-96); MONO % 5.8 % (3.8-10.2); PLATELET COUNT 208 10^3/uL (134-434); RBC 4.82 M/mm3 (4.00-5.60); RDW 13.3 % (11.9-15.9); WHITE BLOOD COUNT 12.4 K/mm3 (4.0-10.0)
[2023-11-08 20:31] LABS: INR 1.03 (0.83-1.09); PROTHROMBIN TIME (PATIENT) 11.8 SEC (9.7-13.0)
[2023-11-08 20:33] LABS: ACTIVATED PTT 29.2 SECONDS (25.2-36.5)
[2023-11-08] MEDS: PIPERACILLIN/TAZOBACTAM 4.5 GM VIAL IVPB ONE (20:35)
[2023-11-08] MEDS: SODIUM CHLORIDE 0.9% 1000 ML INFUS.BAG IV STA (20:35)
[2023-11-08] MEDS: ALBUTEROL SO4 2.5/IPRATROPIUM 0.5 INH SOL 3 ML VIAL.NEB. NEB ONE (20:35)
[2023-11-08 20:44] LABS: POTASSIUM 3.9 mmol/L (3.5-5.1)
[2023-11-08] MEDS ORDERED: VANCOMYCIN 1 GRAM (PRE-DOCKED) 1,000 MG/250 ML BAG IVPB ONE (20:45)
[2023-11-08 20:46] LABS: CALCIUM 9.1 mg/dL (8.5-10.1)
[2023-11-08 20:47] LABS: ALBUMIN 3.2 g/dl (3.4-5.0); BLOOD UREA NITROGEN 34.4 mg/dL (7-18)
[2023-11-08 20:50] LABS: CREATININE 1.3 mg/dL (0.55-1.3)
[2023-11-08 20:51] LABS: TOT PROT 6.2 g/dl (6.4-8.2)
[2023-11-08 20:52] LABS: BILIRUBIN,TOTAL 0.4 mg/dL (0.2-1)
[2023-11-08 20:57] LABS: ANISOCYTOSIS 1+; MACROCYTOSIS 0
[2023-11-08] MEDS: VANCOMYCIN 1,250 MG in DEXTROSE 5%-WATER - 500 ML IVPB ONE (20:58)
[2023-11-08] MEDS: BACITRACIN ZINC 15 GM TUBE TOPICAL OINTMENT TP ONE (22:24)
[2023-11-09 00:17] LABS: URINE APPEARANCE CLEAR; URINE BILIRUBIN NEGATIVE (NEGATIVE); URINE COLOR YELLOW; URINE GLUCOSE (UA) NEGATIVE (NEGATIVE); URINE KETONE NEGATIVE (NEGATIVE); URINE LEUK ESTERASE NEGATIVE (NEGATIVE); URINE NITRITE NEGATIVE (NEGATIVE); URINE PROTEIN NEGATIVE (NEGATIVE); URINE UROBILINOGEN 0.2 mg/dL (0.2-1.0)
[2023-11-09] MEDS: ASPIRIN 81 MG CHEWABLE TABLETS PO ONE (00:52)
[2023-11-09] MEDS ORDERED: ASPIRIN 81 MG CHEWABLE TABLETS ONE (00:57)
[2023-11-09] MEDS ORDERED: ACETAMINOPHEN 1000 MG/100 ML BAG IVPB PRN ×2 (05:03→19:17)
[2023-11-09] MEDS: KETOROLAC TROMETHAMINE 30 MG/1 ML VIAL IM ONE (05:26)
[2023-11-09] MEDS: LIDOCAINE 5% TOPICAL PATCH TP SCH ×2 (05:27)
[2023-11-09] MEDS ORDERED: KETOROLAC TROMETHAMINE 15 MG/ML VIAL IVPUSH PRN (06:53)
[2023-11-09 07:33] LABS: HEMATOCRIT 38.5 % (35.4-49); HEMOGLOBIN 13.2 GM/dL (11.7-16.9); MCH 30.9 pg (25.7-33.7); MCHC 34.4 g/dl (32.0-35.9); MEAN PLT VOLUME 9.9 fl (7.5-11.1); PLATELET COUNT 157 10^3/uL (134-434); RBC 4.28 M/mm3 (4.00-5.60); RDW 12.9 % (11.9-15.9); WHITE BLOOD COUNT 10.5 K/mm3 (4.0-10.0)
[2023-11-09 07:52] LABS: POTASSIUM 3.4 mmol/L (3.5-5.1)
[2023-11-09 08:04] LABS: CALCIUM 8.3 mg/dL (8.5-10.1)
[2023-11-09 08:05] LABS: ALBUMIN 2.7 g/dl (3.4-5.0); BLOOD UREA NITROGEN 20.9 mg/dL (7-18)
[2023-11-09 08:08] LABS: CREATININE 0.9 mg/dL (0.55-1.3)
[2023-11-09 08:09] LABS: BILIRUBIN,TOTAL 0.5 mg/dL (0.2-1)
[2023-11-09] MEDS: PANTOPRAZOLE 40 MG TABLET PO SCH (08:20)
[2023-11-09] MEDS: TAMSULOSIN HCL 0.4 MG CAP PO SCH (08:20)
[2023-11-09] MEDS: POTASSIUM CHLORIDE ORAL LIQUID 20 MEQ/15 ML PO ONE (09:19)
[2023-11-09] MEDS ORDERED: CEFAZOLIN 1 GM in DEXTROSE 5%-WATER - 50 ML IVPB SCH ×2 (10:52→18:00)
[2023-11-09] MEDS: CEFAZOLIN 1 GM in DEXTROSE 5%-WATER - 50 ML IVPB SCH (11:53)
[2023-11-09] MEDS: amLODIPine BESYLATE 5 MG TABLET (FP) PO SCH (11:53)
[2023-11-09] MEDS: ASPIRIN COATED 81 MG TABLET.EC PO SCH (11:54)
[2023-11-09] MEDS: FINASTERIDE 5 MG TABLET (FP) PO SCH (11:54)
[2023-11-09] MEDS: ROFLUMILAST 500 MCG TABLET PO SCH (11:54)
[2023-11-09] MEDS: AMPICILLIN NA/SULBACTAM NA 1.5 GM in SODIUM CHLORIDE 100 ML IVPB SCH (12:01)
[2023-11-09] MEDS: ZINC OXIDE 20% TOPICAL OINTMENT 30 GM TUBE TP SCH (18:52)
[2023-11-09] MEDS: predniSONE 20 MG TABLET (UD) PO ONE (18:56)
[2023-11-09] MEDS: VANCOMYCIN/WATER FOR INJ (PEG) 1,000 MG/200 ML BAG IVPB SCH (18:59)
[2023-11-09] MEDS ORDERED: LIDOCAINE PATCH REMOVAL MC SCH ×2 (22:00)
[2023-11-09] MEDS ORDERED: MONTELUKAST NA 10 MG TABLET PO SCH (22:00)
[2023-11-09] MEDS ORDERED: ROSUVASTATIN CA 20 MG TABLET PO SCH (22:00)
[2023-11-09] MEDS ORDERED: MIRTAZAPINE 15 MG TABLET (FP) PO SCH (22:00)
[2023-11-09] MEDS: MONTELUKAST NA 10 MG TABLET PO SCH (22:46)
[2023-11-09] MEDS: MIRTAZAPINE 15 MG TABLET (FP) PO SCH (22:47)
[2023-11-09] MEDS: ROSUVASTATIN CA 20 MG TABLET PO SCH (22:49)
[2023-11-09] MEDS: LIDOCAINE PATCH REMOVAL MC SCH ×2 (22:49)
[2023-11-10] MEDS: PANTOPRAZOLE 40 MG TABLET PO SCH (06:05)
[2023-11-10 08:17] LABS: HEMATOCRIT 40.9 % (35.4-49); HEMOGLOBIN 14.4 GM/dL (11.7-16.9); MCHC 35.2 g/dl (32.0-35.9); MEAN CELL VOLUME 88.1 fl (80-96); MEAN PLT VOLUME 8.7 fl (7.5-11.1); PLATELET COUNT 170 10^3/uL (134-434); RBC 4.64 M/mm3 (4.00-5.60); RDW 13.3 % (11.9-15.9)
[2023-11-10 08:23] LABS: POTASSIUM 4.2 mmol/L (3.5-5.1)
[2023-11-10 08:32] LABS: CALCIUM 8.9 mg/dL (8.5-10.1)
[2023-11-10 08:33] LABS: ALBUMIN 2.6 g/dl (3.4-5.0); BLOOD UREA NITROGEN 18.3 mg/dL (7-18); MAGNESIUM 2.2 mg/dL (1.8-2.4)
[2023-11-10 08:36] LABS: CREATININE 0.8 mg/dL (0.55-1.3); PHOSPHOROUS 3.5 mg/dL (2.5-4.9)
[2023-11-10 08:37] LABS: BILIRUBIN,TOTAL 0.5 mg/dL (0.2-1); TOT PROT 5.2 g/dl (6.4-8.2)
[2023-11-10] MEDS: TAMSULOSIN HCL 0.4 MG CAP PO SCH (08:48)
[2023-11-10 09:00] LABS: ANISOCYTOSIS 0; MACROCYTOSIS 0
[2023-11-10] MEDS ORDERED: AZITHROMYCIN 250 MG TABLET PO SCH (10:00)
[2023-11-10] MEDS: ROFLUMILAST 500 MCG TABLET PO SCH (10:04)
[2023-11-10] MEDS: FINASTERIDE 5 MG TABLET (FP) PO SCH (10:05)
[2023-11-10] MEDS: amLODIPine BESYLATE 5 MG TABLET (FP) PO SCH (10:05)
[2023-11-10] MEDS: predniSONE 10 MG TABLET (UD) PO ONE (10:05)
[2023-11-10] MEDS: ENOXAPARIN NA (PORCINE) 40 MG/0.4 ML DISP.SYRIN SQ SCH (10:05)
[2023-11-10] MEDS: LIDOCAINE 5% TOPICAL PATCH TP SCH ×2 (10:06)
[2023-11-10] MEDS: ASPIRIN COATED 81 MG TABLET.EC PO SCH (10:06)
[2023-11-10] MEDS: KETOROLAC TROMETHAMINE 15 MG/ML VIAL IVPUSH PRN (17:06)
[2023-11-11 09:54] LABS: BASO % 0.1 % (0-2.0); EOS % 1.8 % (0-4.5); HEMATOCRIT 39.6 % (35.4-49); HEMOGLOBIN 13.7 GM/dL (11.7-16.9); LYMPH % 5.8 % (8-40); MCH 31.1 pg (25.7-33.7); MCHC 34.7 g/dl (32.0-35.9); MEAN CELL VOLUME 89.5 fl (80-96); MEAN PLT VOLUME 10.3 fl (7.5-11.1); MONO % 7.4 % (3.8-10.2); NEUT % 84.9 % (42.8-82.8); PLATELET COUNT 198 10^3/uL (134-434); RBC 4.42 M/mm3 (4.00-5.60); RDW 13.2 % (11.9-15.9)
[2023-11-11 10:10] LABS: POTASSIUM 3.7 mmol/L (3.5-5.1)
[2023-11-11 10:14] LABS: CALCIUM 8.8 mg/dL (8.5-10.1)
[2023-11-11 10:15] LABS: MAGNESIUM 2.2 mg/dL (1.8-2.4)
[2023-11-11 10:18] LABS: CREATININE 0.9 mg/dL (0.55-1.3); PHOSPHOROUS 2.7 mg/dL (2.5-4.9)
[2023-11-11] MEDS: FLUTICASONE PROP 0.05% 16 GM NASAL SPRAY NS SCH (11:01)
[2023-11-11] MEDS: ALBUTEROL SO4 HFA INHALER IH PRN (12:26)
[2023-11-11] MEDS: CLOTRIMAZOLE 1% CREAM TP SCH (21:37)
[2023-11-12 09:32] LABS: HEMATOCRIT 37.4 % (35.4-49); HEMOGLOBIN 12.9 GM/dL (11.7-16.9); MCH 30.9 pg (25.7-33.7); MCHC 34.5 g/dl (32.0-35.9); MEAN CELL VOLUME 89.6 fl (80-96); PLATELET COUNT 162 10^3/uL (134-434); RBC 4.17 M/mm3 (4.00-5.60); RDW 12.8 % (11.9-15.9); WHITE BLOOD COUNT 7.5 K/mm3 (4.0-10.0)
[2023-11-12 10:01] LABS: POTASSIUM 3.7 mmol/L (3.5-5.1)
[2023-11-12 10:03] LABS: BLOOD UREA NITROGEN 23.8 mg/dL (7-18); CALCIUM 7.6 mg/dL (8.5-10.1)
[2023-11-12 10:06] LABS: PHOSPHOROUS 2.9 mg/dL (2.5-4.9)
[2023-11-12 10:07] LABS: CREATININE 0.7 mg/dL (0.55-1.3)
[2023-11-13] MEDS: KETOROLAC TROMETHAMINE 15 MG/ML VIAL IVPUSH PRN (09:05)
[2023-11-13] MEDS ORDERED: ALBUTEROL SO4 0.083% IH SOL 2.5 MG/3 ML VIAL.NEB. NEB PRN (12:00)
[2023-11-13 14:32] VITALS: RESP 18
[2023-11-14 09:02] LABS: HEMATOCRIT 37.9 % (35.4-49); HEMOGLOBIN 13.1 GM/dL (11.7-16.9); MCH 30.6 pg (25.7-33.7); MCHC 34.6 g/dl (32.0-35.9); MEAN CELL VOLUME 88.5 fl (80-96); MEAN PLT VOLUME 9.9 fl (7.5-11.1); PLATELET COUNT 213 10^3/uL (134-434); RBC 4.28 M/mm3 (4.00-5.60); RDW 13.1 % (11.9-15.9); WHITE BLOOD COUNT 8.3 K/mm3 (4.0-10.0)
[2023-11-14 09:15] LABS: POTASSIUM 3.9 mmol/L (3.5-5.1)
[2023-11-14 09:20] LABS: CALCIUM 8.4 mg/dL (8.5-10.1)
[2023-11-14 09:21] LABS: ALBUMIN 2.6 g/dl (3.4-5.0); BLOOD UREA NITROGEN 24.3 mg/dL (7-18); MAGNESIUM 2.1 mg/dL (1.8-2.4)
[2023-11-14 09:23] LABS: CREATININE 0.7 mg/dL (0.55-1.3); PHOSPHOROUS 2.6 mg/dL (2.5-4.9)
[2023-11-14 09:24] LABS: BILIRUBIN,DIRECT 0.2 mg/dL (0.0-0.2); BILIRUBIN,TOTAL 0.7 mg/dL (0.2-1)
[2023-11-14 09:25] LABS: TOT PROT 5.7 g/dl (6.4-8.2)
[2023-11-14 14:22] VITALS: BMI 19.2
[2023-11-14 15:26] VITALS: BP 121/74; PULSE 94; TEMP 98.5
== END 2023-11-14 17:19 | DRG 871 ==
LOC: JER 19:19 → JERBED 22:55 → J4W 11-09 06:00 → J5S 11-09 17:21
PROVIDERS: ADMIT Internal Medicine
DX: A41.89 Other specified sepsis (principal); E43 Unspecified severe protein-calorie malnutrition; J44.1 Chronic obstructive pulmonary disease with (acute) exacerbation; N17.9 Acute kidney failure, unspecified; J96.11 Chronic respiratory failure with hypoxia; Z68.1 Body mass index [BMI] 19.9 or less, adult; E78.5 Hyperlipidemia, unspecified; N49.2 Inflammatory disorders of scrotum; N40.0 Benign prostatic hyperplasia without lower urinary tract symptoms; I10 Essential (primary) hypertension
CPT/HCPCS: 0241U-QW; 36415; 70450-TC; 71045-TC-FY; 72193-TC; 73521-TC-FY; 76870-TC; 80048; 80053; 80061; 80076; 81003; 82803; 82962; 83605; 83735; 84100; 84484; 85025; 85027; 85610; 85730; 86618; 86850; 86900; 86901; 87040; 87081; 87086; 87635; 93005; 93010; 93970-TC; 97116-GP; 97162-GP; 99285-25; G0480; Q9967

== ENCOUNTER 2023-11-29 20:36 | Inpatient (IN) | payer OTHER ==
[2023-11-29] MEDS ORDERED: methylPREDNISolone NA SUCC 125 MG/2 ML VIAL ONE (21:24)
[2023-11-29] MEDS ORDERED: ALBUTEROL SO4 2.5/IPRATROPIUM 0.5 INH SOL 3 ML VIAL.NEB. NEB ONE (21:24)
[2023-11-29] MEDS: ALBUTEROL SO4 2.5/IPRATROPIUM 0.5 INH SOL 3 ML VIAL.NEB. NEB SCH (21:40)
[2023-11-29] MEDS: methylPREDNISolone NA SUCC 125 MG/2 ML VIAL IVPUSH ONE (21:53)
[2023-11-29 21:57] LABS: BASO % 0.5 % (0-2.0); HEMATOCRIT 38.1 % (35.4-49); HEMOGLOBIN 12.7 GM/dL (11.7-16.9); LYMPH % 3.8 % (8-40); MCH 30.1 pg (25.7-33.7); MCHC 33.4 g/dl (32.0-35.9); MEAN PLT VOLUME 9.3 fl (7.5-11.1); MONO % 6.6 % (3.8-10.2); NEUT % 86.1 % (42.8-82.8); PLATELET COUNT 296 10^3/uL (134-434); RBC 4.23 M/mm3 (4.00-5.60); RDW 13.7 % (11.9-15.9); WHITE BLOOD COUNT 9.3 K/mm3 (4.0-10.0)
[2023-11-29 22:14] LABS: POTASSIUM 3.5 mmol/L (3.5-5.1); VENOUS BASE EXCESS 2.4 mmol/L (-2-2); VENOUS O2 SATURATION 83.2 % (70-80); VENOUS PCO2 53.1 mmHg (38-52); VENOUS PH 7.359 (7.310-7.410)
[2023-11-29 22:15] LABS: ALBUMIN 2.6 g/dl (3.4-5.0); BLOOD UREA NITROGEN 14.3 mg/dL (7-18); CALCIUM 9.3 mg/dL (8.5-10.1)
[2023-11-29 22:18] LABS: CREATININE 0.8 mg/dL (0.55-1.3)
[2023-11-29 22:21] LABS: BILIRUBIN,TOTAL 0.6 mg/dL (0.2-1); TOT PROT 6.2 g/dl (6.4-8.2)
[2023-11-30] MEDS ORDERED: CEFTRIAXONE 1 GM/50 ML BAG ONE (01:26)
[2023-11-30] MEDS: CEFTRIAXONE 1,000 MG in DEXTROSE 5%-WATER - 50 ML IVPB ONE (01:26)
[2023-11-30] MEDS ORDERED: AZITHROMYCIN IVPB 500 MG/250 ML BAG IVPB ONE (02:06)
[2023-11-30] MEDS: AZITHROMYCIN IVPB 500 MG in DEXTROSE 5%-WATER - 250 ML IVPB ONE (02:16)
[2023-11-30] MEDS: ALBUTEROL SO4 2.5/IPRATROPIUM 0.5 INH SOL 3 ML VIAL.NEB. NEB SCH (07:34)
[2023-11-30 07:36] LABS: HEMATOCRIT 35.5 % (35.4-49); MCH 29.9 pg (25.7-33.7); MCHC 33.7 g/dl (32.0-35.9); MEAN CELL VOLUME 88.5 fl (80-96); MEAN PLT VOLUME 9.7 fl (7.5-11.1); PLATELET COUNT 278 10^3/uL (134-434); RBC 4.01 M/mm3 (4.00-5.60); RDW 13.2 % (11.9-15.9); WHITE BLOOD COUNT 7.7 K/mm3 (4.0-10.0)
[2023-11-30 07:56] LABS: POTASSIUM 3.7 mmol/L (3.5-5.1)
[2023-11-30 08:02] VITALS: BMI 17.6
[2023-11-30 08:02] LABS: CALCIUM 8.8 mg/dL (8.5-10.1)
[2023-11-30 08:03] LABS: ALBUMIN 2.2 g/dl (3.4-5.0); BLOOD UREA NITROGEN 14.9 mg/dL (7-18); MAGNESIUM 1.7 mg/dL (1.8-2.4)
[2023-11-30 08:06] LABS: CREATININE 0.7 mg/dL (0.55-1.3); PHOSPHOROUS 3.6 mg/dL (2.5-4.9)
[2023-11-30 08:08] LABS: BILIRUBIN,TOTAL 0.4 mg/dL (0.2-1); TOT PROT 5.9 g/dl (6.4-8.2)
[2023-11-30 09:19] LABS: ANISOCYTOSIS 0; MACROCYTOSIS 0
[2023-11-30 09:21] LABS: PLATELET ESTIMATE ADEQUATE
[2023-11-30] MEDS: FINASTERIDE 5 MG TABLET (FP) PO SCH (10:12)
[2023-11-30] MEDS: TAMSULOSIN HCL 0.4 MG CAP PO SCH (10:12)
[2023-11-30] MEDS: amLODIPine BESYLATE 5 MG TABLET (FP) PO SCH (10:13)
[2023-11-30] MEDS: PANTOPRAZOLE 40 MG TABLET PO SCH (10:13)
[2023-11-30] MEDS: methylPREDNISolone NA SUCC 40 MG/1 ML VIAL IVPUSH SCH (10:13)
[2023-11-30] MEDS: ENOXAPARIN NA (PORCINE) 40 MG/0.4 ML DISP.SYRIN SQ SCH (10:14)
[2023-11-30] MEDS: MINERAL OIL/PET HY-PHL TOPICAL OINTMENT 454 GM JAR TP SCH (11:58)
[2023-11-30] MEDS: BUDESONIDE/FORMETEROL FUMARATE 160/4.5 mcg INHALER IH SCH (11:59)
[2023-11-30] MEDS: ROFLUMILAST 500 MCG TABLET PO SCH (13:09)
[2023-11-30] MEDS: MULTIVITAMINS (DAILY MVI) TABLET (FP) PO SCH (17:37)
[2023-11-30] MEDS: LIDOCAINE 5% TOPICAL PATCH TP ONE (20:06)
[2023-11-30] MEDS: MELATONIN 1 MG TABLET PO SCH (22:28)
[2023-11-30] MEDS: MIRTAZAPINE 15 MG TABLET (FP) PO SCH (22:28)
[2023-11-30] MEDS: ROSUVASTATIN CA 20 MG TABLET PO SCH (22:29)
[2023-11-30] MEDS: MONTELUKAST NA 10 MG TABLET PO SCH (22:29)
[2023-11-30] MEDS: KETOROLAC TROMETHAMINE 10 MG TABLET PO PRN (22:30)
[2023-12-01] MEDS: LIDOCAINE PATCH REMOVAL MC SCH (05:38)
[2023-12-01 06:25] LABS: HEMATOCRIT 33.3 % (35.4-49); HEMOGLOBIN 11.4 GM/dL (11.7-16.9); MCH 30.2 pg (25.7-33.7); MCHC 34.4 g/dl (32.0-35.9); MEAN CELL VOLUME 87.9 fl (80-96); MEAN PLT VOLUME 9.4 fl (7.5-11.1); PLATELET COUNT 260 10^3/uL (134-434); RBC 3.78 M/mm3 (4.00-5.60); RDW 13.1 % (11.9-15.9); WHITE BLOOD COUNT 9.8 K/mm3 (4.0-10.0)
[2023-12-01 06:31] LABS: POTASSIUM 3.4 mmol/L (3.5-5.1)
[2023-12-01 06:34] LABS: ALBUMIN 2.2 g/dl (3.4-5.0); BLOOD UREA NITROGEN 18.4 mg/dL (7-18); CALCIUM 8.5 mg/dL (8.5-10.1); MAGNESIUM 1.8 mg/dL (1.8-2.4)
[2023-12-01 06:37] LABS: CREATININE 0.7 mg/dL (0.55-1.3)
[2023-12-01 06:38] LABS: BILIRUBIN,TOTAL 0.3 mg/dL (0.2-1)
[2023-12-01 09:04] LABS: ANISOCYTOSIS 0; HELMET CELLS 0; HOWELL-JOLLY BODIES 0; MACROCYTOSIS 0; OVALOCYTE 0; ROULEAU 0; SICKELED CELLS 0; TARGET CELLS 0; TEAR DROP CELLS 0; TOXIC GRANULATION 0
[2023-12-01] MEDS: CEFTRIAXONE 1 GM in DEXTROSE 5%-WATER - 50 ML IVPB SCH (09:59)
[2023-12-01] MEDS: AZITHROMYCIN IVPB 500 MG/250 ML BAG IVPB SCH (10:00)
[2023-12-01] MEDS: DIPHTH,PERTUSS(ACELL),TET 0.5 ML DISP.SYRIN IM ONE (13:26)
[2023-12-01] MEDS: UMECLIDINIUM/VILANTEROL (ANORO) 62.5/25 MCG INHALER IH SCH (13:28)
[2023-12-01] MEDS: POTASSIUM CHLORIDE ORAL LIQUID 20 MEQ/15 ML PO ONE (19:09)
[2023-12-02] MEDS: ASPIRIN COATED 81 MG TABLET.EC PO SCH (10:27)
[2023-12-02 10:50] LABS: HEMATOCRIT 34.5 % (35.4-49); HEMOGLOBIN 11.6 GM/dL (11.7-16.9); MCH 29.8 pg (25.7-33.7); MCHC 33.5 g/dl (32.0-35.9); MEAN CELL VOLUME 88.9 fl (80-96); MEAN PLT VOLUME 9.6 fl (7.5-11.1); PLATELET COUNT 254 10^3/uL (134-434); RBC 3.89 M/mm3 (4.00-5.60); RDW 13.5 % (11.9-15.9); WHITE BLOOD COUNT 11.6 K/mm3 (4.0-10.0)
[2023-12-02 11:15] LABS: ALBUMIN 2.2 g/dl (3.4-5.0); BLOOD UREA NITROGEN 25.3 mg/dL (7-18); CALCIUM 8.6 mg/dL (8.5-10.1)
[2023-12-02 11:18] LABS: CREATININE 0.8 mg/dL (0.55-1.3)
[2023-12-02 11:20] LABS: BILIRUBIN,TOTAL 0.3 mg/dL (0.2-1); TOT PROT 5.3 g/dl (6.4-8.2)
[2023-12-02 12:37] LABS: ANISOCYTOSIS 0; HELMET CELLS 0; HOWELL-JOLLY BODIES 0; MACROCYTOSIS 0; OVALOCYTE 0; ROULEAU 0; SICKELED CELLS 0; TARGET CELLS 0; TEAR DROP CELLS 0; TOXIC GRANULATION 0
[2023-12-02] MEDS: methylPREDNISolone NA SUCC 40 MG/1 ML VIAL IVPUSH SCH (21:22)
[2023-12-03 10:38] LABS: BASO % 0.1 % (0-2.0); HEMATOCRIT 34.7 % (35.4-49); HEMOGLOBIN 11.6 GM/dL (11.7-16.9); LYMPH % 1.9 % (8-40); MCHC 33.5 g/dl (32.0-35.9); MEAN CELL VOLUME 89.7 fl (80-96); MEAN PLT VOLUME 9.8 fl (7.5-11.1); MONO % 7.3 % (3.8-10.2); NEUT % 90.7 % (42.8-82.8); PLATELET COUNT 241 10^3/uL (134-434); RBC 3.87 M/mm3 (4.00-5.60); RDW 13.6 % (11.9-15.9)
[2023-12-03 10:46] LABS: POTASSIUM 3.7 mmol/L (3.5-5.1)
[2023-12-03 11:15] LABS: CALCIUM 8.6 mg/dL (8.5-10.1)
[2023-12-03 11:16] LABS: ALBUMIN 2.3 g/dl (3.4-5.0); MAGNESIUM 2.1 mg/dL (1.8-2.4)
[2023-12-03 11:19] LABS: CREATININE 0.8 mg/dL (0.55-1.3)
[2023-12-03 11:20] LABS: BILIRUBIN,TOTAL 0.4 mg/dL (0.2-1)
[2023-12-03 11:21] LABS: TOT PROT 5.2 g/dl (6.4-8.2)
[2023-12-03] MEDS: methylPREDNISolone NA SUCC 40 MG/1 ML VIAL IVPUSH SCH (11:40)
[2023-12-03 14:06] VITALS: BP 107/72; PULSE 103; RESP 20; TEMP 97.2
== END 2023-12-03 17:50 | disposition home health service (06) | DRG 190 ==
LOC: JER 20:36 → JERBED 11-30 01:45 → J7W 11-30 05:05
PROVIDERS: ADMIT Internal Medicine; ATTEND Nurse Practitioner Family
DX: J44.1 Chronic obstructive pulmonary disease with (acute) exacerbation (principal); E43 Unspecified severe protein-calorie malnutrition; J96.11 Chronic respiratory failure with hypoxia; R64 Cachexia; Z68.1 Body mass index [BMI] 19.9 or less, adult; J44.9 Chronic obstructive pulmonary disease, unspecified; I10 Essential (primary) hypertension; E78.5 Hyperlipidemia, unspecified; N40.0 Benign prostatic hyperplasia without lower urinary tract symptoms; F32.A Depression, unspecified; M79.89 Other specified soft tissue disorders; R45.89 Other symptoms and signs involving emotional state
CPT/HCPCS: 0241U-QW; 36415; 71045-TC-FY; 80053; 82803; 83735; 83880; 84100; 84484; 85025; 87899; 90715; 93005; 93010; 93971; 94640; 97116-GP; 97162-GP; 99285-25

== ENCOUNTER 2023-12-12 10:26 | Emergency (ER) | payer OTHER ==
[2023-12-12 11:33] VITALS: RESP 17; BMI 18.3
[2023-12-12] MEDS ORDERED: ALBUTEROL SO4 2.5/IPRATROPIUM 0.5 INH SOL 3 ML VIAL.NEB. NEB ONE (11:39)
[2023-12-12] MEDS: ALBUTEROL SO4 2.5/IPRATROPIUM 0.5 INH SOL 3 ML VIAL.NEB. NEB ONE (11:57)
[2023-12-12 12:05] LABS: VENOUS PCO2 54.5 mmHg (38-52); VENOUS PH 7.391 (7.310-7.410)
[2023-12-12 12:07] LABS: BASO % 0.3 % (0-2.0); EOS % 3.1 % (0-4.5); HEMATOCRIT 34.2 % (35.4-49); HEMOGLOBIN 11.6 GM/dL (11.7-16.9); LYMPH % 3.6 % (8-40); MCH 30.6 pg (25.7-33.7); MEAN PLT VOLUME 10.3 fl (7.5-11.1); MONO % 4.7 % (3.8-10.2); NEUT % 88.3 % (42.8-82.8); PLATELET COUNT 155 10^3/uL (134-434); RBC 3.81 M/mm3 (4.00-5.60); RDW 14.4 % (11.9-15.9); WHITE BLOOD COUNT 11.3 K/mm3 (4.0-10.0)
[2023-12-12 12:31] LABS: POTASSIUM 4.5 mmol/L (3.5-5.1)
[2023-12-12 12:33] LABS: ALBUMIN 2.4 g/dl (3.4-5.0); CALCIUM 8.3 mg/dL (8.5-10.1)
[2023-12-12 12:34] LABS: BLOOD UREA NITROGEN 10.8 mg/dL (7-18)
[2023-12-12 12:38] LABS: BILIRUBIN,TOTAL 0.6 mg/dL (0.2-1); CREATININE 0.8 mg/dL (0.55-1.3)
[2023-12-12 12:41] LABS: N-TERMINAL BNP 174.9 pg/ml (5-450)
[2023-12-12] MEDS ORDERED: IBUPROFEN 400 MG TABLET (FP) PO ONE (14:04)
[2023-12-12] MEDS: IBUPROFEN 400 MG TABLET (FP) PO ONE (14:31)
[2023-12-12] MEDS: FUROSEMIDE 40 MG/4 ML INJECTABLE VIAL IVPUSH ONE (18:46)
[2023-12-12] MEDS ORDERED: FUROSEMIDE 40 MG/4 ML INJECTABLE VIAL ONE (18:47)
[2023-12-12 20:13] VITALS: BP 106/57; PULSE 87; TEMP 97.7
== END 2023-12-12 20:32 | disposition home or self-care (01) ==
LOC: JER 10:26
PROC: 3E033GC Introduction of Other Therapeutic Substance into Peripheral Vein, Percutaneous Approach (ICD-10-PCS; principal; 2023-12-12)
PROC: 3E0F7GC Introduction of Other Therapeutic Substance into Respiratory Tract, Via Natural or Artificial Opening (ICD-10-PCS; 2023-12-12)
DX: R60.0 Localized edema (principal); R05.9 Cough, unspecified; R07.9 Chest pain, unspecified; Z20.822 Contact with and (suspected) exposure to COVID-19
CPT/HCPCS: 0241U-QW; 36415; 71045-TC-FY; 80053; 82803; 83880; 84484; 85025; 93005; 93010; 99285-25

== ENCOUNTER 2024-01-31 17:34 | Inpatient (IN) | payer OTHER ==
[2024-01-31 19:14] LABS: VENOUS BASE EXCESS 4.8 mmol/L (-2-2); VENOUS PCO2 50.8 mmHg (38-52); VENOUS PH 7.399 (7.310-7.410)
[2024-01-31] MEDS ORDERED: methylPREDNISolone NA SUCC 125 MG/2 ML VIAL ONE (19:15)
[2024-01-31 19:16] LABS: BASO % 0.1 % (0-2.0); EOS % 0.6 % (0-4.5); HEMATOCRIT 33.6 % (35.4-49); HEMOGLOBIN 10.8 GM/dL (11.7-16.9); LYMPH % 2.4 % (8-40); MCH 28.6 pg (25.7-33.7); MEAN CELL VOLUME 89.3 fl (80-96); MEAN PLT VOLUME 9.2 fl (7.5-11.1); MONO % 2.5 % (3.8-10.2); NEUT % 94.4 % (42.8-82.8); PLATELET COUNT 325 10^3/uL (134-434); RBC 3.77 M/mm3 (4.00-5.60); RDW 16.3 % (11.9-15.9); WHITE BLOOD COUNT 12.1 K/mm3 (4.0-10.0)
[2024-01-31] MEDS ORDERED: ALBUTEROL SO4 2.5/IPRATROPIUM 0.5 INH SOL 3 ML VIAL.NEB. NEB ONE (19:20)
[2024-01-31] MEDS: methylPREDNISolone NA SUCC 125 MG/2 ML VIAL IVPUSH ONE (19:23)
[2024-01-31] MEDS: SODIUM CHLORIDE 0.9% 500 ML INFUS.BAG IV ONE (19:23)
[2024-01-31] MEDS: ALBUTEROL SO4 2.5/IPRATROPIUM 0.5 INH SOL 3 ML VIAL.NEB. NEB ONE ×2 (19:23→22:55)
[2024-01-31 19:28] LABS: POTASSIUM 4.2 mmol/L (3.5-5.1)
[2024-01-31 19:30] LABS: ALBUMIN 1.6 g/dl (3.4-5.0); CALCIUM 8.4 mg/dL (8.5-10.1)
[2024-01-31 19:31] LABS: BLOOD UREA NITROGEN 9.1 mg/dL (7-18)
[2024-01-31 19:34] LABS: CREATININE 0.4 mg/dL (0.55-1.3)
[2024-01-31 19:35] LABS: BILIRUBIN,TOTAL 0.4 mg/dL (0.2-1); TOT PROT 4.6 g/dl (6.4-8.2)
[2024-01-31 19:43] LABS: ANISOCYTOSIS 0; MACROCYTOSIS 0
[2024-01-31] MEDS ORDERED: PIPERACILLIN/TAZOB 4.5 GM 4.5 GM/100 ML BAG IVPB ONE (20:00)
[2024-01-31] MEDS: PIPERACILLIN/TAZOB 4.5 GM 4.5 GM in DEXTROSE 5%-WATER 100 ML IVPB ONE (20:11)
[2024-01-31] MEDS ORDERED: VANCOMYCIN 1 GRAM (PRE-DOCKED) 1,000 MG/250 ML BAG IVPB ONE (20:32)
[2024-01-31] MEDS ORDERED: DOXYCYCLINE HYCLATE 100 MG VIAL ONE (20:44)
[2024-01-31] MEDS: DOXYCYCLINE INJECTION 100 MG in DEXTROSE 5%-WATER 100 ML IVPB ONE (20:54)
[2024-01-31] MEDS: VANCOMYCIN 1,000 MG in DEXTROSE 5%-WATER - 250 ML IVPB ONE (20:54)
[2024-01-31] MEDS ORDERED: MAGNESIUM SULFATE IN WATER 2 GM/50 ML IVPB IVPB ONE (22:43)
[2024-01-31 23:27] LABS: ARTERIAL BLD GAS O2 SATURATION 97.6 % (95-98); ARTERIAL BLOOD GAS BASE EXCESS 0.7 mmol/L (-2-2); ARTERIAL BLOOD GAS PO2 102.8 mmHg (80-100); ARTERIAL BLOOD GAS pH 7.379 (7.350-7.450)
[2024-02-01] MEDS ORDERED: ALBUTEROL SO4 2.5/IPRATROPIUM 0.5 INH SOL 3 ML VIAL.NEB. NEB PRN (01:07)
[2024-02-01] MEDS ORDERED: methylPREDNISolone NA SUCC 40 MG/1 ML VIAL ONE ×2 (03:20→09:22)
[2024-02-01] MEDS: methylPREDNISolone NA SUCC 40 MG/1 ML VIAL IVPUSH SCH (03:27)
[2024-02-01 06:16] LABS: HEMATOCRIT 33.8 % (35.4-49); HEMOGLOBIN 10.6 GM/dL (11.7-16.9); MCH 28.7 pg (25.7-33.7); MCHC 31.4 g/dl (32.0-35.9); MEAN CELL VOLUME 91.5 fl (80-96); MEAN PLT VOLUME 9.2 fl (7.5-11.1); PLATELET COUNT 311 10^3/uL (134-434); RBC 3.69 M/mm3 (4.00-5.60); RDW 16.1 % (11.9-15.9); WHITE BLOOD COUNT 12.8 K/mm3 (4.0-10.0)
[2024-02-01 06:32] LABS: POTASSIUM 4.2 mmol/L (3.5-5.1)
[2024-02-01 06:34] LABS: CALCIUM 8.8 mg/dL (8.5-10.1)
[2024-02-01 06:35] LABS: ALBUMIN 1.6 g/dl (3.4-5.0); BLOOD UREA NITROGEN 11.5 mg/dL (7-18); MAGNESIUM 1.8 mg/dL (1.8-2.4)
[2024-02-01 06:38] LABS: CREATININE 0.4 mg/dL (0.55-1.3); PHOSPHOROUS 4.8 mg/dL (2.5-4.9)
[2024-02-01 06:39] LABS: BILIRUBIN,TOTAL 0.3 mg/dL (0.2-1)
[2024-02-01 06:40] LABS: TOT PROT 4.9 g/dl (6.4-8.2)
[2024-02-01] MEDS ORDERED: TAMSULOSIN HCL 0.4 MG CAP ONE (07:07)
[2024-02-01] MEDS ORDERED: PANTOPRAZOLE 40 MG TABLET PO ONE (07:07)
[2024-02-01] MEDS ORDERED: SUCRALFATE 1 GM TABLET (FP) ONE (07:07)
[2024-02-01] MEDS ORDERED: ALBUTEROL SO4 2.5/IPRATROPIUM 0.5 INH SOL 3 ML VIAL.NEB. NEB ONE (07:08)
[2024-02-01] MEDS: PANTOPRAZOLE 40 MG TABLET PO SCH (07:12)
[2024-02-01] MEDS: ALBUTEROL SO4 2.5/IPRATROPIUM 0.5 INH SOL 3 ML VIAL.NEB. NEB SCH (07:12)
[2024-02-01] MEDS: SUCRALFATE 1 GM TABLET (FP) PO SCH (07:12)
[2024-02-01] MEDS: TAMSULOSIN HCL 0.4 MG CAP PO SCH (07:30)
[2024-02-01] MEDS ORDERED: ENOXAPARIN NA (PORCINE) 40 MG/0.4 ML DISP.SYRIN SQ ONE (09:22)
[2024-02-01] MEDS: ROFLUMILAST 500 MCG TABLET PO SCH (09:31)
[2024-02-01] MEDS: ENOXAPARIN NA (PORCINE) 40 MG/0.4 ML DISP.SYRIN SQ SCH (09:31)
[2024-02-01] MEDS: amLODIPine BESYLATE 5 MG TABLET (FP) PO SCH (09:31)
[2024-02-01] MEDS: ESCITALOPRAM OXALATE 10 MG TABLET PO SCH (09:31)
[2024-02-01] MEDS: FINASTERIDE 5 MG TABLET (FP) PO SCH (09:31)
[2024-02-01 09:52] LABS: ANISOCYTOSIS 0; MACROCYTOSIS 0
[2024-02-01] MEDS ORDERED: POLYETHYLENE GLYCOL (HEALTHYLAX) 3350 17 GM PACKET PO SCH (10:00)
[2024-02-01] MEDS: PIPERACILLIN/TAZOB 3.375 GM 3.375 GM in DEXTROSE 5%-WATER - 50 ML IVPB SCH (18:22)
[2024-02-01] MEDS: FLUTICASONE/UMECLIDIN/VILANTER(200-62.5-25 TRELEGY ELLIPTA) INAHLER IH SCH (20:01)
[2024-02-01] MEDS: ALBUTEROL SULFATE 0.021% (0.63 MG/3 ML) VIAL.NEB NEB SCH (21:00)
[2024-02-01] MEDS: ROSUVASTATIN CA 20 MG TABLET PO SCH (22:44)
[2024-02-02 07:23] LABS: HEMATOCRIT 30.7 % (35.4-49); HEMOGLOBIN 9.7 GM/dL (11.7-16.9); MCH 28.7 pg (25.7-33.7); MCHC 31.7 g/dl (32.0-35.9); MEAN CELL VOLUME 90.4 fl (80-96); MEAN PLT VOLUME 9.3 fl (7.5-11.1); PLATELET COUNT 280 10^3/uL (134-434); WHITE BLOOD COUNT 12.2 K/mm3 (4.0-10.0)
[2024-02-02 07:27] LABS: POTASSIUM 3.9 mmol/L (3.5-5.1)
[2024-02-02 07:33] LABS: ALBUMIN 1.6 g/dl (3.4-5.0); BLOOD UREA NITROGEN 18.8 mg/dL (7-18); CALCIUM 8.6 mg/dL (8.5-10.1); MAGNESIUM 1.8 mg/dL (1.8-2.4)
[2024-02-02 07:36] LABS: BILIRUBIN,TOTAL 0.4 mg/dL (0.2-1); CREATININE 0.4 mg/dL (0.55-1.3); TOT PROT 4.6 g/dl (6.4-8.2)
[2024-02-02 09:46] LABS: ANISOCYTOSIS 0; HELMET CELLS 0; HOWELL-JOLLY BODIES 0; MACROCYTOSIS 0; OVALOCYTE 0; ROULEAU 0; SICKELED CELLS 0; TARGET CELLS 0; TEAR DROP CELLS 0; TOXIC GRANULATION 0
[2024-02-02 14:04] VITALS: BMI 16.7
[2024-02-03 09:54] LABS: BASO % 0.2 % (0-2.0); HEMATOCRIT 30.5 % (35.4-49); HEMOGLOBIN 9.7 GM/dL (11.7-16.9); LYMPH % 1.2 % (8-40); MCH 28.5 pg (25.7-33.7); MCHC 31.9 g/dl (32.0-35.9); MEAN CELL VOLUME 89.4 fl (80-96); MEAN PLT VOLUME 9.6 fl (7.5-11.1); MONO % 5.7 % (3.8-10.2); NEUT % 92.9 % (42.8-82.8); PLATELET COUNT 246 10^3/uL (134-434); RBC 3.42 M/mm3 (4.00-5.60); RDW 15.5 % (11.9-15.9); WHITE BLOOD COUNT 11.4 K/mm3 (4.0-10.0)
[2024-02-03 10:11] LABS: POTASSIUM 3.6 mmol/L (3.5-5.1)
[2024-02-03 10:21] LABS: ALBUMIN 1.6 g/dl (3.4-5.0); BLOOD UREA NITROGEN 17.4 mg/dL (7-18)
[2024-02-03 10:22] LABS: BILIRUBIN,TOTAL 0.2 mg/dL (0.2-1); CALCIUM 8.4 mg/dL (8.5-10.1)
[2024-02-03 10:23] LABS: TOT PROT 4.6 g/dl (6.4-8.2)
[2024-02-03 10:24] LABS: CREATININE 0.4 mg/dL (0.55-1.3)
[2024-02-03] MEDS: MULTIVITAMINS (DAILY MVI) TABLET (FP) PO SCH (10:51)
[2024-02-03] MEDS: CEFTRIAXONE 1 GM in DEXTROSE 5%-WATER - 50 ML IVPB SCH (10:51)
[2024-02-03 11:08] LABS: ANISOCYTOSIS 0; HELMET CELLS 0; HOWELL-JOLLY BODIES 0; MACROCYTOSIS 0; OVALOCYTE 0; ROULEAU 0; SICKELED CELLS 0; TARGET CELLS 0; TEAR DROP CELLS 0; TOXIC GRANULATION 0
[2024-02-03] MEDS: AMINO ACIDS/PROTEIN HYDROLYS 30 ML LIQUID.PKT PO SCH (16:56)
[2024-02-04 09:04] LABS: HEMATOCRIT 34.1 % (35.4-49); HEMOGLOBIN 10.8 GM/dL (11.7-16.9); MCH 28.6 pg (25.7-33.7); MCHC 31.6 g/dl (32.0-35.9); MEAN CELL VOLUME 90.4 fl (80-96); MEAN PLT VOLUME 9.6 fl (7.5-11.1); PLATELET COUNT 246 10^3/uL (134-434); RBC 3.77 M/mm3 (4.00-5.60); RDW 15.5 % (11.9-15.9); WHITE BLOOD COUNT 8.7 K/mm3 (4.0-10.0)
[2024-02-04 09:33] LABS: POTASSIUM 3.4 mmol/L (3.5-5.1)
[2024-02-04 09:38] LABS: ALBUMIN 1.9 g/dl (3.4-5.0); CALCIUM 8.5 mg/dL (8.5-10.1)
[2024-02-04 09:39] LABS: BLOOD UREA NITROGEN 14.2 mg/dL (7-18); MAGNESIUM 1.9 mg/dL (1.8-2.4)
[2024-02-04 09:40] LABS: ANISOCYTOSIS 0; MACROCYTOSIS 0
[2024-02-04 09:42] LABS: CREATININE 0.5 mg/dL (0.55-1.3); PLATELET ESTIMATE ADEQUATE
[2024-02-04 09:43] LABS: BILIRUBIN,TOTAL 0.3 mg/dL (0.2-1)
[2024-02-04] MEDS: methylPREDNISolone NA SUCC 40 MG/1 ML VIAL IVPUSH SCH (17:40)
[2024-02-05] MEDS ORDERED: ALBUTEROL SO4 0.083% IH SOL 2.5 MG/3 ML VIAL.NEB. NEB ONE (06:11)
[2024-02-05 08:19] LABS: HEMATOCRIT 31.1 % (35.4-49); HEMOGLOBIN 10.5 GM/dL (11.7-16.9); MCH 29.7 pg (25.7-33.7); MCHC 33.8 g/dl (32.0-35.9); MEAN PLT VOLUME 9.5 fl (7.5-11.1); PLATELET COUNT 214 10^3/uL (134-434); RBC 3.54 M/mm3 (4.00-5.60); RDW 15.4 % (11.9-15.9); WHITE BLOOD COUNT 9.8 K/mm3 (4.0-10.0)
[2024-02-05 08:26] LABS: ALBUMIN 1.8 g/dl (3.4-5.0); BLOOD UREA NITROGEN 16.7 mg/dL (7-18); CALCIUM 8.2 mg/dL (8.5-10.1); MAGNESIUM 1.8 mg/dL (1.8-2.4)
[2024-02-05 08:29] LABS: CREATININE 0.4 mg/dL (0.55-1.3)
[2024-02-05 08:30] LABS: BILIRUBIN,TOTAL 0.4 mg/dL (0.2-1); TOT PROT 4.8 g/dl (6.4-8.2)
[2024-02-05 09:54] LABS: ANISOCYTOSIS 0; MACROCYTOSIS 0
[2024-02-07 11:01] LABS: CHLORIDE 103 mmol/L (98-107); SODIUM 142 mmol/L (136-145)
[2024-02-07 11:05] LABS: POTASSIUM 2.7 mmol/L (3.5-5.1)
[2024-02-07 11:16] LABS: CALCIUM 8.1 mg/dL (8.5-10.1)
[2024-02-07 11:17] LABS: ALBUMIN 1.8 g/dl (3.4-5.0); ANION GAP 6 mmol/L (4-13); BLOOD UREA NITROGEN 23.2 mg/dL (7-18); CO2 33 mmol/L (21-32); GLUCOSE,RANDOM 100 mg/dL (74-106)
[2024-02-07 11:20] LABS: CREATININE 0.5 mg/dL (0.55-1.3); SGOT/AST 15 U/L (15-37); SGPT/ALT 24 U/L (13-61)
[2024-02-07 11:22] LABS: ALK PHOS 74 U/L (45-117); BILIRUBIN,TOTAL 0.3 mg/dL (0.2-1); TOT PROT 4.4 g/dl (6.4-8.2)
[2024-02-07] MEDS: KCL 10 MEQ IVPB 10 MEQ/100 ML INFUS.BAG IVPB SCH (13:18)
[2024-02-07] MEDS: POTASSIUM CHLORIDE ORAL LIQUID 20 MEQ/15 ML PO ONE (14:19)
[2024-02-07] MEDS: MAGNESIUM OXIDE 400 MG TABLET (FP) PO ONE (14:27)
[2024-02-07 14:31] LABS: PHOSPHOROUS 2.3 mg/dL (2.5-4.9)
[2024-02-07] MEDS: NAPH,MB-DB/K PH,MBDB POWDER PACKET PO SCH (17:34)
[2024-02-07] MEDS: MINERAL OIL/PET HY-PHL TOPICAL OINTMENT 454 GM JAR TP SCH (23:05)
[2024-02-08 07:16] VITALS: RESP 18
[2024-02-08 08:58] LABS: POTASSIUM 3.9 mmol/L (3.5-5.1)
[2024-02-08 09:02] LABS: BLOOD UREA NITROGEN 22.5 mg/dL (7-18); CALCIUM 8.2 mg/dL (8.5-10.1); MAGNESIUM 2.1 mg/dL (1.8-2.4)
[2024-02-08 09:05] LABS: CREATININE 0.4 mg/dL (0.55-1.3)
[2024-02-08 09:06] LABS: PHOSPHOROUS 3.3 mg/dL (2.5-4.9)
[2024-02-09 09:27] LABS: POTASSIUM 3.5 mmol/L (3.5-5.1)
[2024-02-09 09:30] LABS: CALCIUM 8.3 mg/dL (8.5-10.1)
[2024-02-09 09:31] LABS: BLOOD UREA NITROGEN 19.2 mg/dL (7-18)
[2024-02-09 09:34] LABS: PHOSPHOROUS 3.1 mg/dL (2.5-4.9)
[2024-02-09 09:35] LABS: CREATININE 0.4 mg/dL (0.55-1.3)
[2024-02-09 15:47] VITALS: BP 126/72; PULSE 85; TEMP 97.3
[2024-02-09] MEDS ORDERED: POTASSIUM CHLORIDE ORAL LIQUID 20 MEQ/15 ML PO ONE (16:04)
== END 2024-02-09 16:32 | DRG 190 ==
LOC: JER 17:34 → JERBED 20:33 → J7W 02-01 10:32
PROVIDERS: ADMIT Internal Medicine
DX: J44.1 Chronic obstructive pulmonary disease with (acute) exacerbation (principal); E43 Unspecified severe protein-calorie malnutrition; J96.21 Acute and chronic respiratory failure with hypoxia; R64 Cachexia; Z68.1 Body mass index [BMI] 19.9 or less, adult; N40.0 Benign prostatic hyperplasia without lower urinary tract symptoms; I11.0 Hypertensive heart disease with heart failure; E78.5 Hyperlipidemia, unspecified; F32.A Depression, unspecified; E87.6 Hypokalemia; J44.0 Chronic obstructive pulmonary disease with (acute) lower respiratory infection; L89.626 Pressure-induced deep tissue damage of left heel; L89.616 Pressure-induced deep tissue damage of right heel; K21.9 Gastro-esophageal reflux disease without esophagitis
CPT/HCPCS: 0241U-QW; 36415; 36600; 71045-TC-FY; 71275-TC; 80048; 80053; 82803; 82962; 83605; 83735; 84100; 84484; 85025; 87040; 87070; 87081; 87205; 93005; 93010; 94640; 97116-GP; 97162-GP; 99285-25; Q9967

== ENCOUNTER 2024-02-26 13:39 | Inpatient (IN) | payer OTHER ==
[2024-02-26] MEDS ORDERED: ALBUTEROL SO4 2.5/IPRATROPIUM 0.5 INH SOL 3 ML VIAL.NEB. NEB ONE ×2 (13:43→14:01)
[2024-02-26] MEDS ORDERED: methylPREDNISolone NA SUCC 125 MG/2 ML VIAL ONE (13:48)
[2024-02-26] MEDS ORDERED: MAGNESIUM SULFATE IN WATER 2 GM/50 ML IVPB IVPB ONE (13:49)
[2024-02-26 14:03] LABS: VENOUS BASE EXCESS 1.3 mmol/L (-2-2); VENOUS O2 SATURATION 39.1 % (70-80); VENOUS PCO2 45.8 mmHg (38-52); VENOUS PH 7.384 (7.310-7.410)
[2024-02-26 14:05] LABS: HEMATOCRIT 34.8 % (35.4-49); HEMOGLOBIN 10.9 GM/dL (11.7-16.9); MCH 28.5 pg (25.7-33.7); MCHC 31.3 g/dl (32.0-35.9); MEAN CELL VOLUME 91.1 fl (80-96); PLATELET COUNT 154 10^3/uL (134-434); RBC 3.82 M/mm3 (4.00-5.60); RDW 18.1 % (11.9-15.9); WHITE BLOOD COUNT 2.8 K/mm3 (4.0-10.0)
[2024-02-26] MEDS ORDERED: CEFEPIME 1 GM/100 ML BAG IVPB ONE (14:08)
[2024-02-26 14:12] LABS: INR 1.39 (0.83-1.09); PROTHROMBIN TIME (PATIENT) 15.6 SEC (9.7-13.0)
[2024-02-26 14:15] LABS: ACTIVATED PTT 51.6 SECONDS (25.2-36.5)
[2024-02-26 14:25] LABS: POTASSIUM 4.3 mmol/L (3.5-5.1)
[2024-02-26 14:29] LABS: ALBUMIN 1.1 g/dl (3.4-5.0); BLOOD UREA NITROGEN 61.7 mg/dL (7-18); CALCIUM 9.1 mg/dL (8.5-10.1)
[2024-02-26 14:30] LABS: MAGNESIUM 2.1 mg/dL (1.8-2.4)
[2024-02-26] MEDS: MAGNESIUM SULFATE IN WATER 2 GM/50 ML IVPB IVPB ONE (14:30)
[2024-02-26] MEDS: methylPREDNISolone NA SUCC 125 MG/2 ML VIAL IVPUSH SCH ×2 (14:30→21:06)
[2024-02-26] MEDS: ALBUTEROL SO4 2.5/IPRATROPIUM 0.5 INH SOL 3 ML VIAL.NEB. NEB ONE (14:30)
[2024-02-26] MEDS: CEFEPIME HCL 1 GM VIAL (RESTRICTED TO ID) IVPB ONE (14:30)
[2024-02-26] MEDS: LACTATED RINGERS SOLUTION 1000 ML INFUS.BAG IV ONE ×2 (14:30→15:30)
[2024-02-26 14:32] LABS: CREATININE 2.5 mg/dL (0.55-1.3); PHOSPHOROUS 2.5 mg/dL (2.5-4.9)
[2024-02-26] MEDS ORDERED: VANCOMYCIN 1 GRAM (PRE-DOCKED) 1,000 MG/250 ML BAG IVPB ONE (14:32)
[2024-02-26 14:33] LABS: BILIRUBIN,TOTAL 0.7 mg/dL (0.2-1)
[2024-02-26 14:34] LABS: LACTIC ACID 6.8 mmol/L (0.4-2.0)
[2024-02-26 14:35] LABS: N-TERMINAL BNP 1560.6 pg/ml (5-450)
[2024-02-26 14:36] LABS: ANISOCYTOSIS 0; HELMET CELLS 0; HOWELL-JOLLY BODIES 0; MACROCYTOSIS 0; OVALOCYTE 0; ROULEAU 0; SICKELED CELLS 0; TARGET CELLS 0; TEAR DROP CELLS 0; TOXIC GRANULATION 0
[2024-02-26 14:41] LABS: EPI CELLS 11 /uL (0-25.1); HYALINE CASTS 8 /uL (0-3.1); URINE APPEARANCE TURBID; URINE BILIRUBIN 1+ (NEGATIVE); URINE COLOR DK YELLOW; URINE GLUCOSE (UA) NEGATIVE (NEGATIVE); URINE KETONE TRACE (NEGATIVE); URINE LEUK ESTERASE 3+ (NEGATIVE); URINE NITRITE NEGATIVE (NEGATIVE); URINE PROTEIN 2+ (NEGATIVE); URINE RBC 90 /uL (0-23.9); URINE UROBILINOGEN 0.2 mg/dL (0.2-1.0); URINE WBC 4056 /uL (0-25.8)
[2024-02-26 14:42] LABS: URINE BACTERIA >9000 /uL (0-1359)
[2024-02-26] MEDS: VANCOMYCIN 1,000 MG in DEXTROSE 5%-WATER - 250 ML IVPB ONE (14:44)
[2024-02-26 16:38] LABS: LACTIC ACID 6.9 mmol/L (0.4-2.0)
[2024-02-26] MEDS: SODIUM CHLORIDE 1,000 ML IV STA ×3 (17:41→21:06)
[2024-02-26] MEDS ORDERED: ALBUTEROL SO4 0.083% IH SOL 2.5 MG/3 ML VIAL.NEB. NEB SCH (18:00)
[2024-02-26] MEDS: PIPERACILLIN/TAZOB 3.375 GM 3.375 GM in DEXTROSE 5%-WATER - 50 ML IVPB SCH (18:07)
[2024-02-26] MEDS: AMIODARONE IN DEXTROSE,ISO-OSM 150 MG/100 ML BAG IVPB ONE (18:51)
[2024-02-26] MEDS ORDERED: AMIODARONE IN DEXTROSE,ISO-OSM 150 MG/100 ML BAG ONE (18:58)
[2024-02-26] MEDS: AMIODARONE IN DEXTROSE,ISO-OSM 360 MG/200 ML BAG IV SCH (19:10)
[2024-02-26] MEDS: ALBUTEROL SO4 0.083% IH SOL 2.5 MG/3 ML VIAL.NEB. NEB SCH (19:49)
[2024-02-26] MEDS: HEPARIN NA (PORCINE) 5,000 UNITS/ML 1ML VIAL SQ SCH (21:06)
[2024-02-27] MEDS: AMIODARONE IN DEXTROSE,ISO-OSM 360 MG/200 ML BAG IV SCH (01:27)
[2024-02-27] MEDS: SODIUM CHLORIDE 1,000 ML IV STA ×3 (02:58→05:20)
[2024-02-27] MEDS: AMIODARONE IN DEXTROSE,ISO-OSM 150 MG/100 ML BAG IVPB ONE (05:15)
[2024-02-27] MEDS ORDERED: AMIODARONE IN DEXTROSE,ISO-OSM 150 MG/100 ML BAG ONE (05:17)
[2024-02-27] MEDS ORDERED: AMIODARONE IN DEXTROSE,ISO-OSM 150 MG/100 ML BAG IVPB ONE (06:45)
[2024-02-27 07:40] LABS: HEMATOCRIT 35.2 % (35.4-49); MCH 28.7 pg (25.7-33.7); MCHC 31.3 g/dl (32.0-35.9); MEAN CELL VOLUME 91.7 fl (80-96); MEAN PLT VOLUME 11.1 fl (7.5-11.1); PLATELET COUNT 99 10^3/uL (134-434); RBC 3.83 M/mm3 (4.00-5.60); RDW 18.4 % (11.9-15.9)
[2024-02-27 07:49] LABS: WHITE BLOOD COUNT 1.8 K/mm3 (4.0-10.0)
[2024-02-27 07:59] LABS: CHLORIDE 126 mmol/L (98-107); SODIUM 156 mmol/L (136-145)
[2024-02-27 08:03] LABS: CALCIUM 8.1 mg/dL (8.5-10.1); CO2 22 mmol/L (21-32); GLUCOSE,RANDOM 110 mg/dL (74-106)
[2024-02-27 08:07] LABS: CREATININE 1.7 mg/dL (0.55-1.3); PHOSPHOROUS 2.2 mg/dL (2.5-4.9)
[2024-02-27 08:42] LABS: LACTIC ACID 4.1 mmol/L (0.4-2.0)
[2024-02-27 08:53] LABS: ANION GAP 7 mmol/L (4-13); POTASSIUM 2.8 mmol/L (3.5-5.1)
[2024-02-27 09:15] LABS: ANISOCYTOSIS 0; MACROCYTOSIS 0
[2024-02-27] MEDS: PANTOPRAZOLE SODIUM 40 MG VIAL IVPUSH SCH (10:14)
[2024-02-27] MEDS: KCL 10 MEQ IVPB 10 MEQ/100 ML INFUS.BAG IVPB SCH (10:14)
[2024-02-27] MEDS: POTASSIUM PHOSPHATE 30 MM in DEXTROSE 5%-WATER - 250 ML IVPB ONE (10:25)
[2024-02-27 14:25] VITALS: BMI 16.5
[2024-02-27] MEDS: THIAMINE HCL 200 MG/2 ML VIAL IVPB SCH (14:31)
[2024-02-27] MEDS: NOREPINEPHRINE BITARTRATE/D5W 8 MG/250 ML BAG IVPB SCH (16:15)
[2024-02-27] MEDS: PIPERACILLIN/TAZOB 3.375 GM 3.375 GM in DEXTROSE 5%-WATER - 50 ML IVPB SCH ×2 (18:00→19:50)
[2024-02-27] MEDS: MAGNESIUM SULF 50% (8.12 MEQ/2 ML-1 GM VIAL) IVPB ONE (19:53)
[2024-02-27] MEDS ORDERED: VASopressin 20 UNITS/ML VIAL IV ONE (19:56)
[2024-02-27] MEDS: VASopressin 40 UNITS/100 ML BAG IV SCH (20:11)
[2024-02-27 21:19] LABS: VENOUS BASE EXCESS -7.9 mmol/L (-2-2); VENOUS O2 SATURATION 69.3 % (70-80); VENOUS PCO2 37.4 mmHg (38-52); VENOUS PH 7.293 (7.310-7.410)
[2024-02-27 21:49] LABS: POTASSIUM 3.6 mmol/L (3.5-5.1)
[2024-02-27 21:52] LABS: BLOOD UREA NITROGEN 57.3 mg/dL (7-18)
[2024-02-27 21:55] LABS: CREATININE 1.6 mg/dL (0.55-1.3)
[2024-02-27] MEDS: KCL 20 MEQ PREMIX BAG 20 MEQ/100 ML INFUS.BAG IVPB ONE (22:45)
[2024-02-28 07:32] LABS: HEMOGLOBIN 10.9 GM/dL (11.7-16.9); MCH 28.7 pg (25.7-33.7); MEAN CELL VOLUME 92.6 fl (80-96); PLATELET COUNT 56 10^3/uL (134-434); RBC 3.79 M/mm3 (4.00-5.60); RDW 18.6 % (11.9-15.9); WHITE BLOOD COUNT 8.1 K/mm3 (4.0-10.0)
[2024-02-28 07:55] LABS: POTASSIUM 3.9 mmol/L (3.5-5.1)
[2024-02-28 07:55] LABS: LACTIC ACID 3.5 mmol/L (0.4-2.0)
[2024-02-28 08:14] LABS: BLOOD UREA NITROGEN 56.5 mg/dL (7-18)
[2024-02-28 08:16] LABS: MAGNESIUM 1.9 mg/dL (1.8-2.4)
[2024-02-28 08:19] LABS: CREATININE 1.7 mg/dL (0.55-1.3); PHOSPHOROUS 5.9 mg/dL (2.5-4.9)
[2024-02-28 08:21] LABS: BILIRUBIN,TOTAL 0.7 mg/dL (0.2-1); TOT PROT 3.7 g/dl (6.4-8.2)
[2024-02-28 08:25] VITALS: RESP 20; TEMP 98.7
[2024-02-28] MEDS ORDERED: MORPHINE SULFATE/0.9% NACL/PF 100 MG/100 ML BAG IVPB SCH (09:15)
[2024-02-28 09:44] LABS: ANISOCYTOSIS 2+; MACROCYTOSIS 0
[2024-02-28] MEDS: morphine SULFATE 4 MG/ML VIAL IVPUSH ONE (10:49)
[2024-02-28] MEDS ORDERED: LORazepam 2 MG/ML SDV VIAL IVPUSH PRN (11:21)
[2024-02-28 12:43] VITALS: BP 81/41; PULSE 112
== END 2024-02-28 11:37 | disposition expired | DRG 871 ==
LOC: JER 13:39 → JERBED 14:52 → JICU 16:00
PROVIDERS: ADMIT Internal Medicine; ATTEND Internal Medicine
PROC: 05HM33Z Insertion of Infusion Device into Right Internal Jugular Vein, Percutaneous Approach (ICD-10-PCS; principal; 2024-02-26)
PROC: B543ZZA Ultrasonography of Right Jugular Veins, Guidance (ICD-10-PCS; 2024-02-26)
DX: A41.89 Other specified sepsis (principal); E43 Unspecified severe protein-calorie malnutrition; J18.9 Pneumonia, unspecified organism; J96.21 Acute and chronic respiratory failure with hypoxia; R65.21 Severe sepsis with septic shock; J44.1 Chronic obstructive pulmonary disease with (acute) exacerbation; N17.9 Acute kidney failure, unspecified; D61.818 Other pancytopenia; R64 Cachexia; Z68.1 Body mass index [BMI] 19.9 or less, adult; E46 Unspecified protein-calorie malnutrition; N39.0 Urinary tract infection, site not specified; E87.0 Hyperosmolality and hypernatremia; E87.29 Other acidosis; J44.0 Chronic obstructive pulmonary disease with (acute) lower respiratory infection; I46.9 Cardiac arrest, cause unspecified; I48.91 Unspecified atrial fibrillation; B96.20 Unspecified Escherichia coli [E. coli] as the cause of diseases classified elsewhere; I10 Essential (primary) hypertension; H26.8 Other specified cataract; L81.9 Disorder of pigmentation, unspecified; E78.5 Hyperlipidemia, unspecified; N40.0 Benign prostatic hyperplasia without lower urinary tract symptoms; F32.9 Major depressive disorder, single episode, unspecified; H40.9 Unspecified glaucoma; E86.0 Dehydration; Z99.81 Dependence on supplemental oxygen
CPT/HCPCS: 0241U-QW; 36415; 71045-TC-FY; 80048; 80053; 81003; 82272; 82803; 82962; 83605; 83735; 83880; 84100; 84484; 85025; 85610; 85730; 87040; 87086; 87186; 87899; 93005; 93010; 94640; 99291; J0282; J1644; J3490